=== PATIENT | female | born 1950 | race Caucasian/White ===

== ENCOUNTER → 2019-04-06 | Outpatient (CLI) | payer MEDICARE ==
--- NOTE | 2019-04-06 14:40 | US ---
EXAMINATION TYPE: US pelvic complete DATE OF EXAM: 04/06/2019 COMPARISON: NONE CLINICAL HISTORY: R10.2 Pelvic Pain. general pelvic pain, not consistent, h/o mild prolapse, TECHNIQUE: TA. Transabdominal sonographic images only, patient would be unable to do TV due to habi tus and she cannot bend her knee, pending total knee replacement Date of LMP: 12yrs EXAM MEASUREMENTS: Uterus: 7.7 x 4.9 x 3.6 cm Endometrial Stripe: Not discernable Right Ovary: not seen Left Ovary: 1.5 x 1.4 x 1.3 cm bladder was not fully distended, patient did prep and felt full 1. Uterus: Anteverted, difficult to penetrate, images at end of study shows peripheral calcification s 2. Endometrium: not discernable 3. Right Ovary: not seen likely due to atrophy and bowel gas 4. Left Ovary: atrophic, appears wnl 5. Bilateral Adnexa: wnl 6. Posterior cul-de-sac: wnl IMPRESSION: Suboptimal exam as transvaginal exam could not be performed as discussed above. 1. Nonvisualization of the right ovary and atrophic left ovary. Uterus appears heterogenous however s uboptimally viewed and endometrium cannot be delineated.
== END | disposition home or self-care (01) ==
LOC: RADUSWWP 13:28
PROVIDERS: ATTEND Internal Medicine
DX: N83.312 Acquired atrophy of left ovary (principal)
CPT/HCPCS: 76856

== ENCOUNTER 2023-11-25 07:22 | Emergency (ER) | payer MEDICARE ==
--- NOTE | 2023-11-25 07:42 | ED ---
General Adult HPI - General Chief complaint: Extremity Injury, Lower Stated complaint: Fall, L Ankle Pain Time Seen by Provider: 11/25/23 07:27 Source: patient, RN notes reviewed, old records reviewed Mode of arrival: EMS Limitations: no limitations - History of Present Illness Initial comments: 73-year-old female presenting for evaluation of left ankle pain status post fall. Patient states she tripped falling in her bedroom. She did not have head or neck trauma. She was transported by paramedics due to the inability to bear weight on her left leg. - Related Data Home Medications Medication Instructions Recorded Confirmed Aspirin 162 mg PO DAILY 09/05/14 09/05/14 Calcium Carbonate/Vitamin D3 1 each PO BID 09/05/14 09/05/14 [Calcium 600-Vit D3 400 Tablet] Escitalopram [Lexapro] 20 mg PO DAILY 09/05/14 09/05/14 Levothyroxine Sodium [Synthroid] 137 mcg PO DAILY 09/05/14 09/05/14 Mirtazapine [Remeron] 15 mg PO HS 09/05/14 09/05/14 Multivitamin [Men's Multi-Vitamin] 1 each PO DAILY 09/05/14 09/05/14 Naproxen Sodium [Naprelan] 375 mg PO DAILY 09/05/14 09/05/14 Omeprazole [PriLOSEC] 20 mg PO AC-BRKFST 09/05/14 09/05/14 Simvastatin [Zocor] 20 mg PO HS 09/05/14 09/05/14 glyBURIDE [Diabeta] 5 mg PO AC-BID 09/05/14 09/05/14 metFORMIN HCL [Glucophage] 1,000 mg PO BID 09/05/14 09/05/14 sitaGLIPtin PHOSPHATE [Januvia] 100 mg PO DAILY 09/05/14 09/05/14 Allergies Allergy/AdvReac Type Severity Reaction Status Date / Time No Known Allergies Allergy Verified 11/25/23 07:37 Review of Systems ROS Statement: Those systems with pertinent positive or pertinent negative responses have been documented in the HPI. ROS Other: All systems not noted in ROS Statement are negative. Past Medical History Past Medical History: Diabetes Mellitus Additional Past Medical History / Comment(s): ARTHRITIS History of Any Multi-Drug Resistant Organisms: None Reported Additional Past Surgical History / Comment(s): CATARACT Past Anesthesia/Blood Transfusion Reactions: No Reported Reaction Past Psychological History: Depression Smoking Status: Never smoker Past Alcohol Use History: None Reported Past Drug Use History: None Reported - Past Family History Father Family Medical History: Diabetes Mellitus, Hyperlipidemia, Hypertension, Myocardial Infarction ([place]) Additional Family Medical History / Comment(s): AT AGE 83- Mother Family Medical History: Diabetes Mellitus Additional Family Medical History / Comment(s): AT AGE 81 FROM COMPLICATIONS FROM P[place]S Brother(s) Family Medical History: Diabetes Mellitus Sister(s) Family Medical History: Diabetes Mellitus General Exam Limitations: no limitations General appearance: alert, in no apparent distress Head exam: Present: atraumatic, normocephalic Eye exam: Present: normal appearance, PERRL ENT exam: Present: normal exam Neck exam: Present: normal inspection. Absent: tenderness, meningismus Respiratory exam: Present: normal lung sounds bilaterally. Absent: respiratory distress, wheezes Cardiovascular Exam: Present: regular rate, normal rhythm GI/Abdominal exam: Present: soft. Absent: distended, tenderness, guarding Extremities exam: Present: tenderness, joint swelling, other (2+ DP pulse, swelling over the lateral malleolus with ecchymosis). Absent: full ROM Neurological exam: Present: alert, oriented X3 Psychiatric exam: Present: normal affect, normal mood Skin exam: Present: warm Course Vital Signs 11/25/23 11/25/23 07:32 09:35 Temperature 97.3 F L 98.1 F Pulse Rate 68 79 Respiratory 18 18 Rate Blood Pressure 155/80 145/89 O2 Sat by Pulse 99 98 Oximetry - Reevaluation(s) Reevaluation #1: 11/25/23 10:40 The patient will need a wheelchair to perform her ADLs. She is unable to ambulate with a walker. The patient has a caregiver at home and can propel herself. Procedures - Orthopedic Splinting/Casting Injury #1 Side: left Lower Extremity Injury Location: ankle Lower Extremity Immobilizer: stirrup splint Other Orthopedic Equipment: other (Wheelchair) Medical Decision Making - Medical Decision Making Was pt. sent in by a medical professional or institution (, PA, GENERAL II FARMWORKER, urgent care, hospital, or assisted...) When possible be specific @ -No Did you speak to anyone other than the patient for history (EMS, parent, family, police, friend...)? What history was obtained from this source @ -No Did you review nursing and triage notes (agree or disagree)? Why? @ -I reviewed and agree with nursing and triage notes Were old charts reviewed (outside hosp., previous admission, EMS record, old EKG, old radiological studies, urgent care reports/EKG's, assisted records)? Report findings @ -No old charts were reviewed Differential Diagnosis (chest pain, altered mental status, abdominal pain women, abdominal pain men, vaginal bleeding, weakness, fever, dyspnea, syncope, headache, dizziness, GI bleed, back pain, seizure, CVA, palpatations, mental health, musculoskeletal)? @Differential Musculoskeletal Muscular strain, contusion, ligament sprain, fracture, arthritis, septic arthritis, bursitis, cellulitis, muscle spasm, nerve compression, DVT, arterial occlusion, herpes zoster, electrolyte abnormality, tumor.... This is not meant to be in all inclusive list EKG interpreted by me (3pts min.). @ -As above X-rays interpreted by me (1pt min.). @X-ray of the left ankle showing a distal lateral malleolus avulsion fracture without disruption of the ankle mortis lumbar spine x-ray is negative for fracture. Showing chronic changes. CT interpreted by me (1pt min.). @ -[CT brain negative for intracranial hemorrhage or mass effect, CT cervical spine negative for fracture or subluxation U/S interpreted by me (1pt. min.). @ -None done What testing was considered but not performed or refused? (CT, X-rays, U/S, labs)? Why? @ -None What meds were considered but not given or refused? Why? @ -None Did you discuss the management of the patient with other professionals (braydne johnson i.e. , PA, GENERAL II FARMWORKER, lab, RT, psych nurse, social worker assistant, ferris wheel attendant, teacher, front desk officer, director of casework services)? Give summary @ -No Was smoking cessation discussed for >3mins.? @ -No Was critical care preformed (if so, how long)? @ -No Were there social determinants of health that impacted care today? How? (Homelessness, low income, unemployed, alcoholism, drug addiction, transportation, low edu. Level, literacy, decrease access to med. care, fci, rehab)? @ -No Was there de-escalation of care discussed even if they declined (Discuss DNR or withdrawal of care, Hospice)? DNR status @ -No What co-morbidities impacted this encounter? (DM, HTN, Smoking, COPD, CAD, Cancer, CVA, ARF, Chemo, Hep., AIDS, mental health diagnosis, sleep apnea, morbid obesity)? @ -None Was patient admitted / discharged? Hospital course, mention meds given and route, prescriptions, significant lab abnormalities, going to OR and other pertinent info. @ -[73-year-old female with fall at home, left ankle injury. She had some chronic low back pain, chronic neck pain. Workup does reveal a avulsion fracture of the lateral malleolus. Patient is placed in a stirrup splint. She is offered observation and possible rehabilitation. The patient declines and prefers to go home. She is provided with a prescription for wheelchair. Undiagnosed new problem with uncertain prognosis? @ -No Drug Therapy requiring intensive monitoring for toxicity (Heparin, Nitro, Insulin, Cardizem)? @ -No Were any procedures done? @Yes, splint placement Diagnosis/symptom? @ -Ankle fracture Acute, or Chronic, or Acute on Chronic? @Acute Uncomplicated (without systemic symptoms) or Complicated (systemic symptoms)? @ -Default Side effects of treatment? @ -No Exacerbation, Progression, or Severe Exacerbation? @ -No Poses a threat to life or bodily function? How? (Chest pain, [place], [place], pneumonia, PE, COPD, DKA, ARF, appy, cholecystitis, CVA, Diverticulitis, Homicidal, Suicidal, threat to staff... and all critical care pts) @ -No Disposition Clinical Impression: Fracture of malleolus, left ankle, closed, Ankle fracture Disposition: HOME SELF-CARE Instructions (If sedation given, give patient instructions): Ankle Fracture (ED) Is patient prescribed a controlled substance at d/c from ED?: No Referrals: [facility] [NON-STAFF] - (Supplier of wheelchair) None,Stated [REFERRING] - 1-2 days Jaime Velazquez DO [Doctor of Osteopathic Medicine] - 1-2 days Forms: Area PCPs
[2023-11-25 07:49] VITALS: RESP 18
--- NOTE | 2023-11-25 08:37 | XR ---
EXAMINATION TYPE: XR lumbar spine 2 or 3V DATE OF EXAM: 11/25/2023 CLINICAL HISTORY: pain TECHNIQUE: Two views of the lumbar spine are submitted. COMPARISON: None. FINDINGS: There are 5 lumbar type vertebral bodies identified. The lumbar spine shows satisfactory alignment w ithout evidence of acute fracture or dislocation. Vertebral body heights are within normal limits. Severe degenerative disc space narrowing L3-4 through L5-S1. Grade 2 anterolisthesis L4 on L5 measuri ng 1.2 cm Severe facet joint arthropathy. Curvature convex to the right. The overlying soft tissue appears unr emarkable. IMPRESSION: No acute fracture is seen in the lumbar spine. ICD 10 NO FRACTURE, INITIAL EVALUATION
--- NOTE | 2023-11-25 08:41 | XR ---
EXAMINATION TYPE: XR ankle complete LT DATE OF EXAM: 11/25/2023 COMPARISON: NONE HISTORY: Pain TECHNIQUE: 3 views of the left ankle are submitted for evaluation. FINDINGS: Small avulsion fracture at the tip of the lateral malleolus with associated soft tissue swe lling. Well-corticated ossific density adjacent to the medial malleolar tip is likely chronic in natu re. Ankle mortise is intact. IMPRESSION: 1. As above
--- NOTE | 2023-11-25 09:50 | CT ---
EXAMINATION TYPE: CT brain cspine wo con CT DLP: 1554.6 mGycm, Automated exposure control for dose reduction was used. DATE OF EXAM: 11/25/2023 9:30 AM COMPARISON: None. CLINICAL INDICATION:Female, 73 years old with history of fall; fall TECHNIQUE: Brain: Multiple axial CT images of the brain were obtained without IV contrast. Cspine: Axial CT images from the skull base to the inferior aspect of T2 we obtained without intraven ous contrast. Coronal and sagittal reformatted images were also reviewed. FINDINGS: Brain: Extra-axial spaces: No abnormal extra-axial fluid collections. Ventricular system: Dilatation in proportion to cerebral atrophy. Cerebral parenchyma: Cerebral atrophy. No acute intraparenchymal hemorrhage or mass effect. The delgado -white junction is well differentiated. Scattered hypoattenuating areas are seen within the white mat ter. Cerebellum: Unremarkable. Mass effect: No evidence of midline shift. Intracranial vasculature: Atherosclerotic calcifications of the intracranial vessels. Soft tissues: Normal. Calvarium/osseous structures: No depressed skull fracture. Paranasal sinuses and mastoid air cells: Clear. Visualized orbits: Orbital contents are intact. Cervical spine: Fracture: None. Osseous structures: Multilevel degenerative disc disease changes with endplate spurring and disc oste ophyte complex's. Vertebral alignment: Within normal limits. Spinal canal/Neural Foramina: No evidence of significant spinal canal narrowing. No evidence for sign ificant neural foraminal stenosis. Neck soft tissues: Prevertebral soft tissues are within normal limits. Other: The airway is patent. The lung apices are clear. IMPRESSION: 1. No acute intracranial process. 2. Nonspecific white matter changes, likely secondary to chronic small vessel ischemic disease. 3. No evidence of cervical spine fracture. 4. Mild multilevel degenerative disc disease.
[2023-11-25] MEDS ORDERED: KETOROLAC 15 MG/ML 1 ML VIAL IM STA (09:51)
[2023-11-25 11:13] VITALS: TEMP 98
[2023-11-25 14:05] VITALS: BP 171/83; PULSE 95
== END 2023-11-25 13:43 | disposition home or self-care (01) ==
LOC: EC 07:22
DX: S82.62XA Displaced fracture of lateral malleolus of left fibula, initial encounter for closed fracture (principal); E11.9 Type 2 diabetes mellitus without complications; F32.A Depression, unspecified; Z79.84 Long term (current) use of oral hypoglycemic drugs; Z79.899 Other long term (current) drug therapy; W01.0XXA Fall on same level from slipping, tripping and stumbling without subsequent striking against object, initial encounter; Y92.003 Bedroom of unspecified non-institutional (private) residence as the place of occurrence of the external cause
CPT/HCPCS: 72100; 73610; 72125; 70450; 99284; 29515; 96372; J1885

== ENCOUNTER → 2024-02-11 | Outpatient (CLI) | payer MEDICARE ==
[2024-02-11 13:25] VITALS: BP 132/72; PULSE 72; RESP 15; TEMP 97.2
--- NOTE | 2024-02-11 14:59 | P.PAINPG ---
PQRS Measure Charge Sheet Comment: HISTORY OF PRESENT ILLNESS: A 73 yr old female w daughter at side as a referral from Dr Hui presents today w severe and chronic LBP > 1 yr secondary to DDD, spondylosis and facet arthropathy without myelopathy for evaluation. Pt states pain level is provoked at 9 /10 in intensity, constant, localized in the lower lumbar spine, predominantly axial, achy in character w occasional shooting pain towards the BL hips L> R. Pain is provoked by walking/ standing for periods > 10 min. Pain is alleviated by PT in 2017, heat, medications (Naproxen), manual massage, repositioning and rest. Oswestry axial pain score at 33. PMH: OA, HTN, Hyperlipidemia, NIDDM II, GERD, Vitamin D Deficiency, MDD PSH: Cataracts SH: Negative x3 FH: Fa- DM, CAD, maylin ge 85. Mo- DM, Parkinsons, at age 83. Bro- DM. Sis- DM. All: See list Meds: See list REVIEW OF ORGAN SYSTEMS: CONSTITUTIONAL: No fevers or chills. No recent weight loss. NEUROLOGICAL: + numbness and tingling along the distal extremities. No seizure disorders or headaches. MUSCULOSKELETAL: + pain PSYCHIATRIC: Denies current depression or suicidal thoughts. Physical Examinations : Constitutional : Cooperative , not in acute distress . Neurologic : Cranial nerve II to XII intact. No focal neurological deficits. Psychiatric : alert & oriented x 3. Matching mood & appropriate affect. Judgment & insight intact. Musculoskeletal : Cervical Spine Motor strength in the deltoid and biceps: Normal right side. Normal Left side Motor strength biceps and the wrist extensors: Normal right side . Normal left side Motor strength in the triceps muscle: Normal right side. Normal left side Deep tendon reflexes: Normal at the biceps. Normal at Brachioradialis. Normal at triceps Vertebral body tenderness to deep palpation over Cervical facet loading test: positive bilaterally Spurling test: positive bilaterally Neck distraction test: positive bilaterally Nabil sign: positive bilaterally Lumbar spine Motor strength lower extremities ,thigh and legs 5/5 Right side , 5/5 Left side Deep tendon reflexes : Normal Knee Jerk. Normal Ankle Jerk Vertebral body tenderness over Gee Test positive Lumbar facet Loading Test: positive Right / positive Left Range of motion of the lumbar spine Flexion 30 degrees, extension 10 degrees Straight Leg Raise test: Left/ Right positive at degree Toya test: positive right / positive left. Severe tenderness over the Sacroiliac joint on the Right / Left sides Gaenslen test: positive bilaterally Seated flexion test: positive bilaterally. Sacral spine : Severe tenderness over the Sacroiliac joint: right side / left side Range of motion: Flexion of the lumbar spine <60 degrees Range of motion: Extension of the lumbar spine <20 degrees Gaenslen's Test positive Toya test: positive right side / l eft side Thigh Thrust Test Sacral Thrust Test Imaging: X ray of the lumbar spine from 11/25/2023 reviewed Assessment/ Plan : Lumbar DDD Recommendation of MRI non contrast lumbar spine M51.36. All questions answered. I have spent greater than 30 minutes on patient care today. Dr Partida was available by phone for the evaluation of this patient. The time was used to review the medical records including relevant urine studies and Prescription history (MAPs), review of the available imaging, evaluation and examination of the patient, coordination of care with the medical staff and if applicable referring physicians, as well as creation of the medical record PQRS Narrative: Smoking Status Never smoker Home Medications: Ambulatory Orders Aspirin 162 mg PO DAILY 09/05/14 Calcium Carbonate/Vitamin D3 [Calcium 600-Vit D3 400 Tablet] 1 each PO BID 09/05/14 Escitalopram [Lexapro] 20 mg PO DAILY 09/05/14 Levothyroxine Sodium [Synthroid] 137 mcg PO DAILY 09/05/14 Mirtazapine [Remeron] 15 mg PO HS 09/05/14 Multivitamin [Men's Multi-Vitamin] 1 each PO DAILY 09/05/14 Naproxen Sodium [Naprelan] 375 mg PO DAILY 09/05/14 Omeprazole [PriLOSEC] 20 mg PO AC-BRKFST 09/05/14 Simvastatin [Zocor] 20 mg PO HS 09/05/14 glyBURIDE [Diabeta] 5 mg PO AC-BID 09/05/14 metFORMIN HCL [Glucophage] 1,000 mg PO BID 09/05/14 sitaGLIPtin PHOSPHATE [Januvia] 100 mg PO DAILY 09/05/14 Controlled Substance Measures - Controlled Substance Measures Is patient prescribed a controlled substance at discharge?: No
== END | disposition home or self-care (01) ==
LOC: PNWHC3 12:25
PROVIDERS: ATTEND Specialist
DX: M50.10 Cervical disc disorder with radiculopathy, unspecified cervical region (principal); M51.36 Other intervertebral disc degeneration, lumbar region
CPT/HCPCS: 99211

== ENCOUNTER 2024-04-08 13:14 | Day surgery (SDC) | payer MEDICARE ==
[~2024-04-08 13:14] MED LIST: LACTATED RINGERS 1,000 ML IV SCH
[2024-04-08 13:51] VITALS: TEMP 98.2
[2024-04-08 13:52] LABS: Glucose,Whole Blood 157 mg/dL (70-110)
[2024-04-08] MEDS ORDERED: ROPIVACAINE 5MG/ML 20ML VIAL ONE (14:49)
[2024-04-08] MEDS ORDERED: methylPREDNISolone ACETATE 40 MG/ML 1 ML VIAL ONE (14:49)
--- NOTE | 2024-04-08 15:00 | P.PCN ---
Date of Procedure: 04/08/24 Procedure(s) Performed: Procedure= trigger point injections cervical paraspinal muscles bilaterally , 4 on the right side from C2 to T2, and 5 on the left side from C2 to T2 Preoperative diagnosis= 1-myofascial pain syndrome Cervical paraspinal muscles 2-cervical degenerative disc disease Postoperative diagnosis=Same as preop Diagnosis . Complication = none Condition= stable Anesthesia= none Indication for the procedure= patient complaining of severe neck pain and headache , and low back pain , examination was positive for multiple trigger point in the cervical paraspinal muscles bilaterally and patient diagnosed with myofascial pain syndrome and is here to have trigger point injections Description of the procedure= procedure risk and benefits discussed with the patient, including but not limited, risk of infection and bleeding, and ALLERGIC reaction to the medication and not complete pain relief and patient agreed with the preceding patient taken to the operating room, placed in sitting position or standard monitors applied to the patient then cervical area prepped with chlorhexidine 3 times , then under sterile technique each of the trigger point that was marked in the preop holding area 4 on the right side Cervical paraspinal muscles, and 5 on the left side cervical paraspinal muscles each one of them injected with the 2 mL of the mixture of ropivacaine 0.5% 18 ML mixed with 40 mg of Depo-Medrol and 2 mL of the mixture injected at each trigger point after negative aspiration, using 25-gauge needle, injection done after negative aspiration under was no paresthesia during the injection patient tolerated the procedure well without any complications and he will follow up in the pain clinic in a few weeks. She was complaining of severe low back pain previously we ordered MRI of the lumbar spine but because patient cannot stay still for long time to do MRI of the lumbar spine, we will order CT scan of the lumbar spine without contrast to evaluate her lumbar spine , prescription for CT scan of the lumbar spine was given
[2024-04-08 15:26] VITALS: BP 115/74; PULSE 72; RESP 14
== END 2024-04-08 15:33 | disposition home or self-care (01) ==
LOC: ORPAIN 13:14
PROVIDERS: ATTEND Specialist
DX: M79.18 Myalgia, other site (principal); M50.31 Other cervical disc degeneration, high cervical region; Z79.82 Long term (current) use of aspirin
CPT/HCPCS: 20553; J2795; J1010

== ENCOUNTER 2024-04-15 22:24 | Inpatient (IN) | payer MEDICARE ==
[2024-04-15 22:57] LABS: Glucose,Whole Blood 208 mg/dL (70-110)
[2024-04-15 23:02] LABS: Basophils # (A) 0.1 k/uL (0-0.2); Basophils % (A) 1 %; Eosinophils # (A) 0.4 k/uL (0-0.7); Eosinophils % (A) 4 %; HCT 40.7 % (34.0-46.0); HGB 13.2 gm/dL (11.4-16.0); Lymphocytes # (A) 3.9 k/uL (1.0-4.8); Lymphocytes % (A) 34 %; MCH 28.5 pg (25.0-35.0); MCHC 32.5 g/dL (31.0-37.0); MCV 87.6 fL (80.0-100.0); Mean Platelet Volume 6.8; Monocytes # (A) 0.7 k/uL (0-1.0); Monocytes % (A) 6 %; Neutrophils # (A) 6.3 k/uL (1.3-7.7); Neutrophils % (A) 55 %; Platelet Count 514 k/uL (150-450); RBC 4.64 m/uL (3.80-5.40); RDW 12.4 % (11.5-15.5); WBC 11.5 k/uL (3.8-10.6)
--- NOTE | 2024-04-15 23:10 | ED ---
General Adult HPI - General Chief complaint: Altered Mental Status Stated complaint: poor memory, shaking, low sodium Time Seen by Provider: 04/15/24 22:48 Source: family Mode of arrival: wheelchair Limitations: no limitations - History of Present Illness Initial comments: Dictation was produced using [employer] dictation software. please excuse any grammatical, word or spelling errors. Chief Complaint: 73-year-old female presents to the emergency department with low sodium, weakness and altered mental status History of Present Illness: Patient 73-year-old female she has past medical history of diabetes, chronic back pain. She had routine blood work performed by her primary care doctor on Friday. States that she reviewed her results and daughter noticed that her sodium level was pretty low at 123. She has had sodium as low as 120 in the past. Patient also over the last 2 to 3 days has been having what daughter describes as some lapses in mentation that she describes as confusion about where she is. Patient states she is has acute on chronic back pain. She does follow-up with pain specialist and is scheduled to have a CT of her back soon. Any fever. No numbness tingling paresthesias to the arms or legs. Denies headache The ROS documented in this emergency department record has been reviewed and confirmed by me. Those systems with pertinent positive or negative responses have been documented in the HPI. All other systems are other negative and/or noncontributory. - Related Data Home Medications Medication Instructions Recorded Confirmed Aspirin 243 mg PO DAILY 09/05/14 04/08/24 Calcium Carbonate/Vitamin D3 1 each PO DAILY 09/05/14 04/08/24 [Calcium 600-Vit D3 400 Tablet] Escitalopram [Lexapro] 20 mg PO DAILY 09/05/14 04/08/24 Mirtazapine [Remeron] 15 mg PO HS 09/05/14 04/08/24 Multivitamin [Men's Multi-Vitamin] 1 each PO DAILY 09/05/14 04/08/24 Naproxen Sodium [Naprelan] 375 mg PO BID 09/05/14 04/08/24 Omeprazole [PriLOSEC] 20 mg PO AC-BRKFST 09/05/14 04/08/24 Simvastatin [Zocor] 20 mg PO HS 09/05/14 04/08/24 metFORMIN HCL [Glucophage] 1,000 mg PO BID 09/05/14 04/08/24 Unk Loperamide 1 tab PO DIRECTED PRN 04/07/24 04/08/24 Fluconazole 200 mg PO DIRECTED PRN 04/07/24 04/08/24 Insulin Glargine/Lixisenatide 20 units SQ DAILY 04/07/24 04/08/24 [Soliqua 100 Unit-33 Mcg/ml Pen] Levothyroxine Sodium [Synthroid] 137 mcg PO DAILY 04/07/24 04/08/24 Unk Azo Cranberry 1 tab PO DAILY 04/07/24 04/08/24 Unk Azo Probiotic 1 tab PO DAILY 04/07/24 04/08/24 Unk Nyamyc Powder 1 applic TOPICAL DIRECTED PRN 04/07/24 04/08/24 Unk Nystatin Cream 1 applic TOPICAL DIRECTED PRN 04/07/24 04/08/24 lisinopriL [Zestril] 10 mg PO DAILY 04/07/24 04/08/24 ondansetron HCL [Ondansetron HCl] 8 mg PO DIRECTED PRN 04/07/24 04/08/24 Allergies Allergy/AdvReac Type Severity Reaction Status Date / Time No Known Allergies Allergy Verified 04/15/24 22:36 Review of Systems ROS Statement: Those systems with pertinent positive or pertinent negative responses have been documented in the HPI. ROS Other: All systems not noted in ROS Statement are negative. Past Medical History Past Medical History: Diabetes Mellitus, GERD/Reflux, Hyperlipidemia, Hypertension, Osteoarthritis (OA), Thyroid Disorder Additional Past Medical History / Comment(s): ARTHRITIS, hx UTI History of Any Multi-Drug Resistant Organisms: None Reported Additional Past Surgical History / Comment(s): CATARACT, toe surgery for neuroma , D&C Past Anesthesia/Blood Transfusion Reactions: No Reported Reaction Past Psychological History: Depression Smoking Status: Never smoker Past Alcohol Use History: None Reported Past Drug Use History: None Reported - Past Family History Father Family Medical History: Diabetes Mellitus, Hyperlipidemia, Hypertension, Myocardial Infarction ([place]) Additional Family Medical History / Comment(s): AT AGE 83- Mother Family Medical History: Diabetes Mellitus Additional Family Medical History / Comment(s): AT AGE 81 FROM COMPLICATIO NS FROM [place] Brother(s) Family Medical History: Diabetes Mellitus Sister(s) Family Medical History: Diabetes Mellitus General Exam - General Exam Comments Initial Comments: PHYSICAL EXAM: General Impression: Alert and oriented x3, not in acute distress HEENT: Normocephalic atraumatic, extra-ocular movements intact, pupils equal and reactive to light bilaterally, mucous membranes moist. Cardiovascular: Heart regular rate and rhythm Chest: Able to complete full sentences, no retractions, no tachypnea Abdomen: abdomen soft, non-tender, non-distended, no organomegaly Musculoskeletal: Pulses present and equal in all extremities, no peripheral edema Motor: no focal deficits noted Neurological: CN II-XII grossly intact, no focal motor or sensory deficits noted Skin: Intact with no visualized rashes Psych: Normal affect and mood Limitations: no limitations Course Vital Signs 04/15/24 22:33 Temperature 97.8 F Pulse Rate 92 Respiratory 18 Rate Blood Pressure 122/75 O2 Sat by Pulse 97 Oximetry EKG Findings - EKG Comments: EKG Findings:: My EKG interpretation: Ventricular rate 107, QRS 93, QTc 394. Interpretation limited due to artifact.. No OR prolongation, no QTC prolongation, no ST or T-wave changes noted. EKG compared to prior 08/15/2014 showing no changes. Overall, this EKG is unremarkable Medical Decision Making - Medical Decision Making Was pt. sent in by a medical professional or institution ([facility], PONY WORKER, urgent care, hospital, or senior living...) When possible be specific @ -No Did you speak to anyone other than the patient for history (EMS, parent, family, police, friend...)? What history was obtained from this source @ -History obtained from daughter as described above Did you review nursing and triage notes (agree or disagree)? Why? @ -I reviewed and agree with nursing and triage notes Were old charts reviewed (outside hosp., previous admission, EMS record, old EKG, old radiological studies, urgent care reports/EKG's, senior living records)? Report findings @ -No old charts were reviewed Differential Diagnosis (chest pain, altered mental status, abdominal pain women, abdominal pain men, vaginal bleeding, musculoskeletal, weakness, fever, dyspnea, syncope, headache, dizziness, GI bleed, back pain, seizure, CVA, palpatations, mental health)? @ -Differential Weakness: Hypoglycemia, shock, sepsis, hyponatremia, anemia, infection, SD, ETOH, adverse medicine reaction, overdose, stroke, this is not meant to be an all-inclusive list. EKG interpreted by me (3pts min.). @ -See above X-rays interpreted by me (1pt min.). @ -None done CT interpreted by me (1pt min.). @ -Scan of the brain is unremarkable. U/S interpreted by me (1pt. min.). @ -None done What testing was considered but not performed or refused? (CT, X-rays, U/S, labs)? Why? @ -None What meds were considered but not given or refused? Why? @ -None Did you discuss the management of the patient with other professionals (professionals i.e. , PA, PONY WORKER, lab, RT, psych nurse, public health social worker, automotive accessory installer, teacher, audit officer, showcase maker)? Give summary @ -Case discussed with Dr. Hui for admission Was smoking cessation discussed for >3mins.? @ -No Was critical care preformed (if so, how long)? @ -No Were there social determinants of health that impacted care today? How? (Homelessness, low income, unemployed, alcoholism, drug addiction, transportation, low edu. Level, literacy, decrease access to med. care, nursing home, rehab)? @ -No Was there de-escalation of care discussed even if they declined (Discuss DNR or withdrawal of care, Hospice)? DNR status @ -No What co-morbidities impacted this encounter? (DM, HTN, Smoking, COPD, CAD, Cancer, CVA, ARF, Chemo, Hep., AIDS, mental health diagnosis, sleep apnea, morbid obesity)? @ -None Was patient admitted / discharged? Hospital course, mention meds given and route, prescriptions, significant lab abnormalities, going to OR and other pertinent info. @ -73-year-old female presents to the ER for weakness. Vital signs upon arrival are within acceptable limits. Patient has complaints of generalized weakness and nonfocal altered mental status described as confusion. Labs are obtained. Sodium is 122. Rest of labs within acceptable limits. Patient will be admitted. Patient treated with IV fluids. Undiagnosed new problem with uncertain prognosis? @ -No Drug Therapy requiring intensive monitoring for toxicity (Heparin, Nitro, Insulin, Cardizem)? @ -No Were any procedures done? @ -No Diagnosis/symptom? Acute, or Chronic, or Acute on Chronic? Uncomplicated (wi thout systemic symptoms) or Complicated (systemic symptoms)? @ -Hyponatremia Side effects of treatment? @ -No Exacerbation, Progression, or Severe Exacerbation? @ -No Poses a threat to life or bodily function? How? (Chest pain, USA, SD, pneumonia, PE, COPD, DKA, ARF, appy, cholecystitis, CVA, Diverticulitis, Homicidal, Suicidal, threat to staff... and all critical care pts) @ -yes - Lab Data Result diagrams: 04/15/24 22:55 04/15/24 22:55 Lab Results 04/15/24 04/15/24 04/15/24 Range/Units 22:55 22:55 22:56 WBC 11.5 H (3.8-10.6) k/uL RBC 4.64 (3.80-5.40) m/uL Hgb 13.2 (11.4-16.0) gm/dL Hct 40.7 (34.0-46.0) % MCV 87.6 (80.0-100.0) fL MCH 28.5 (25.0-35.0) pg MCHC 32.5 (31.0-37.0) g/dL RDW 12.4 (11.5-15.5) % Plt Count 514 H (150-450) k/uL MPV 6.8 Neutrophils % 55 % Lymphocytes % 34 % Monocytes % 6 % Eosinophils % 4 % Basophils % 1 % Neutrophils # 6.3 (1.3-7.7) k/uL Lymphocytes # 3.9 (1.0-4.8) k/uL Monocytes # 0.7 (0-1.0) k/uL Eosinophils # 0.4 (0-0.7) k/uL Basophils # 0.1 (0-0.2) k/uL Sodium 122 L (137-145) mmol/L Potassium 4.9 (3.5-5.1) mmol/L Chloride 92 L (98-107) mmol/L Carbon Dioxide 19 L (22-30) mmol/L Anion Gap 11 mmol/L BUN 21 H (7-17) mg/dL Creatinine 0.68 (0.52-1.04) mg/dL Est GFR (CKD-EPI)AfAm >90 (>60 ml/min/1.73 sqM) Est GFR (CKD-EPI)NonAf 88 (>60 ml/min/1.73 sqM) Glucose 208 H (74-99) mg/dL POC Glucose (mg/dL) 208 H (70-110) mg/dL POC Glu Shake Out Worker ID Wayne Obrien Calcium 9.3 (8.4-10.2) mg/dL Magnesium 1.5 L (1.6-2.3) mg/dL Total Bilirubin 0.5 (0.2-1.3) mg/dL AST 24 (14-36) U/L ALT 18 (4-34) U/L Alkaline Phosphatase 66 (38-126) U/L Total Protein 6.8 (6.3-8.2) g/dL Albumin 4.4 (3.5-5.0) g/dL Disposition Clinical Impression: Hyponatremia Disposition: ADMITTED IP TO THIS HOSP Condition: Fair Referrals: Rico Hui MD [Primary Care Provider] - 1-2 days Decision Time: 00:38
[2024-04-15 23:22] LABS: ALT 18 U/L (4-34); AST 24 U/L (14-36); African American GFR (CKD) >90 (>60 ml/min/1.73 sqM); Albumin 4.4 g/dL (3.5-5.0); Alkaline Phosphatase 66 U/L (38-126); Anion Gap 11 mmol/L; Blood Urea Nitrogen 21 mg/dL (7-17); Calcium 9.3 mg/dL (8.4-10.2); Carbon Dioxide 19 mmol/L (22-30); Chloride 92 mmol/L (98-107); Glucose 208 mg/dL (74-99); Magnesium 1.5 mg/dL (1.6-2.3); Non-African American GFR(CKD) 88 (>60 ml/min/1.73 sqM); Potassium 4.9 mmol/L (3.5-5.1); Sodium 122 mmol/L (137-145); Total Bilirubin 0.5 mg/dL (0.2-1.3); Total Protein 6.8 g/dL (6.3-8.2)
[2024-04-15] MEDS: SODIUM CHLORIDE 0.9% 1,000 ML IV STA ×2 (23:54)
--- NOTE | 2024-04-16 | CT ---
EXAM: CT Head Without Intravenous Contrast CLINICAL HISTORY: ITS.REASON CT Reason: ams, back pain TECHNIQUE: Axial computed tomography images of the head/brain without intravenous contrast. CTDI is 49.1 mGy and DLP is 1154.4 mGy-cm. This CT exam was performed using one or more of the following dose reduction techniques: automated exposure control, adjustment of the mA and/or kV according to patient size, and/or use of iterative reconstruction technique. COMPARISON: No relevant prior studies available. FINDINGS: No acute intracranial hemorrhage. No midline shift or mass effect. The territorial delgado-white matter differentiation is maintained throughout. Age-related cerebral volume loss. Periventricular and subcortical white matter hypoattenuation, consistent with chronic microangiopathy. The visualized orbits appear grossly unremarkable. The calvarium is intact. The visualized paranasal sinuses and mastoid air cells are grossly clear. IMPRESSION: No acute intracranial hemorrhage, midline shift, or mass effect.
[2024-04-16] MEDS ORDERED: NALOXONE 0.4 MG/ML 1 ML VIAL IV PRN (01:14)
--- NOTE | 2024-04-16 01:19 | CT ---
EXAM: CT Thoracic Spine Without Intravenous Contrast CLINICAL HISTORY: ITS.REASON CT Reason: ams, back pain TECHNIQUE: Axial computed tomography images of the thoracic spine without intravenous contrast. CTDI is 40.3 mGy and DLP is 2253.4 mGy-cm. This CT exam was performed using one or more of the following dose reduction techniques: automated exposure control, adjustment of the mA and/or kV according to patient size, and/or use of iterative reconstruction technique. COMPARISON: No relevant prior studies available. FINDINGS: The vertebral body heights are maintained. The thoracic kyphosis is preserved. There is no spondylolisthesis. The posterior elements are maintained, without evidence of acute fracture. The pedicles are intact. Multilevel thoracic spondylosis and degenerative disc disease. IMPRESSION: No acute fracture or subluxation of the thoracic spine. EXAM: CT Lumbar Spine Without Intravenous Contrast CLINICAL HISTORY: ITS.REASON CT Reason: ams, back pain TECHNIQUE: Axial computed tomography images of the lumbar spine without intravenous contrast. This CT exam was performed using one or more of the following dose reduction techniques: automated exposure control, adjustment of the mA and/or kV according to patient size, and/or use of iterative reconstruction technique. COMPARISON: No relevant prior studies available. FINDINGS: The vertebral body heights are maintained. The lumbar lordosis is preserved. Grade 1 anterolisthesis of L4 on L5. The posterior elements are maintained, without evidence of acute fracture. The pedicles are intact. Multilevel lumbar spondylosis and degenerative disc disease. IMPRESSION: No lumbar spine fracture. Grade 1 anterolisthesis of L4 on L5.
[2024-04-16] MEDS: SODIUM CHLORIDE 0.9% 1,000 ML IV SCH ×2 (01:55→20:32)
[2024-04-16] MEDS ORDERED: ONDANSETRON 4 MG TAB PO PRN (09:41)
[2024-04-16] MEDS ORDERED: LOPERAMIDE 2 MG CAP PO PRN (09:41)
[2024-04-16] MEDS: ASPIRIN 81 MG PO SCH (10:32)
[2024-04-16] MEDS: CALCIUM CARB-VIT D 500 MG-5 MCG TAB PO SCH (10:32)
[2024-04-16] MEDS: lisinopriL 10 MG TAB PO SCH (10:32)
[2024-04-16] MEDS: LEVOTHYROXINE 125 MCG TAB PO SCH (10:33)
--- NOTE | 2024-04-16 10:58 | P.HPIM ---
History of Present Illness H&P Date: 04/16/24 Ngoc Elder, is a 73-year-old female who presented to [facility] emergency room with a chief complaint of severe weakness, mental status changes, and low sodium and low sodium. Patient stated that she was having increasing weakness, with confusion and mental status changes, she had a blood test as outpatient, and her daughter noticed that sodium was low at 123, patient had previous episodes of hyponatremia, and patient and her daughter decided to come to emergency room. She was evaluated in the emergency room vital examination on presentation revealed a temperature of 97.8 pulse 92 respiration 18 blood pressure 122/75 pulse ox 97% on room air Laboratory data revealed a white blood count of 11.5 hemoglobin 13.2 platelet count 514 sodium 122 potassium 4.9 chloride 92 CO2 19 BUN 21 creatinine 0.68 glucose level 208 magnesium 1.5 Testing in the emergency room revealed EKG done in the emergency room revealed supraventricular tachycardia, CT scan of the brain done in the emergency room without contrast revealed no acute intracranial hemorrhage midline shift or mass effect, CT scan of the thoracic and lumbar spine did not reveal any evidence of acute fracture or subluxation. Patient was admitted to medical floor for further evaluation and treatment Past medical history is significant for history of diabetes mellitus, history of hypertension, history of hyperlipidemia, history of hypothyroidism, history of gastroesophageal reflux disease, 30 of osteoarthritis, and history of depression On review of systems Past Medical History Past Medical History: Diabetes Mellitus, GERD/Reflux, Hyperlipidemia, Hypertension, Osteoarthritis (OA), Thyroid Disorder Additional Past Medical History / Comment(s): ARTHRITIS, hx UTI, bladder prolapse. History of Any Multi-Drug Resistant Organisms: None Reported Additional Past Surgical History / Comment(s): CATARACT, toe surgery for neuroma, D&C, partial thyroid. Past Anesthesia/Blood Transfusion Reactions: No Reported Reaction Past Psychological History: Depression Smoking Status: Never smoker Past Alcohol Use History: None Reported Past Drug Use History: None Reported - Past Family History Father Family Medical History: Diabetes Mellitus, Hyperlipidemia, Hypertension, Myocardial Infarction ([place]) Additional Family Medical History / Comment(s): AT AGE 83- Mother Family Medical History: Diabetes Mellitus Additional Family Medical History / Comment(s): AT AGE 81 FROM COMPLICATIONS FROM [place] Brother(s) Family Medical History: Diabetes Mellitus Sister(s) Family Medical History: Diabetes Mellitus Medications and Allergies Home Medications Medication Instructions Recorded Confirmed Type Aspirin 243 mg PO DAILY 09/05/14 04/16/24 History Calcium Carbonate/Vitamin D3 1 tab PO DAILY 09/05/14 04/16/24 History [Calcium 600-Vit D3 400 Tablet] Escitalopram [Lexapro] 20 mg PO DAILY 09/05/14 04/16/24 History Mirtazapine [Remeron] 15 mg PO HS 09/05/14 04/16/24 History Naproxen Sodium [Naprelan] 375 mg PO BID 09/05/14 04/16/24 History Omeprazole [PriLOSEC] 20 mg PO AC-BRKFST 09/05/14 04/16/24 History Simvastatin [Zocor] 20 mg PO HS 09/05/14 04/16/24 History metFORMIN HCL [Glucophage] 1,000 mg PO BID 09/05/14 04/16/24 History Fluconazole 200 mg PO DAILY PRN 04/07/24 04/16/24 History Insulin Glargine/Lixisenatide 20 units SQ DAILY 04/07/24 04/16/24 History [Soliqua 100 Unit-33 Mcg/ml Pen] Unk Azo Probiotic 1 tab PO DAILY 04/07/24 04/16/24 History Unk Nyamyc Powder 1 applic TOPICAL DIRECTED PRN 04/07/24 04/16/24 History Unk Nystatin Cream 1 applic TOPICAL DIRECTED PRN 04/07/24 04/16/24 History lisinopriL [Zestril] 10 mg PO DAILY 04/07/24 04/16/24 History ondansetron HCL [Ondansetron HCl] 8 mg PO DIRECTED PRN 04/07/24 04/16/24 History Cranberry Fruit Concentrate [Azo 250 mg PO DAILY 04/16/24 04/16/24 History Cranberry] D-Mannose 1 tab PO DAILY 04/16/24 04/16/24 History Levothyroxine Sodium [Synthroid] 125 mcg PO DAILY 04/16/24 04/16/24 History Loperamide [Imodium] 2 mg PO QID PRN 04/16/24 04/16/24 History Multivitamins, Thera [Multivitamin 1 tab PO DAILY 04/16/24 04/16/24 History (formulary)] Allergies Allergy/AdvReac Type Severity Reaction Status Date / Time No Known Allergies Allergy Verified 04/16/24 08:14 Physical Exam Vitals: Vital Signs Temp Pulse Pulse Resp BP BP Pulse Ox 04/16/24 08:13 98.2 F 70 18 143/78 99 04/16/24 06:10 66 18 133/65 96 04/16/24 04:00 68 18 122/62 95 04/16/24 02:00 73 18 129/63 99 04/16/24 01:00 75 18 129/63 95 04/15/24 22:33 97.8 F 92 18 122/75 97 Intake and Output 04/15/24 04/16/24 04/16/24 22:59 06:59 14:59 Other: Weight 113.398 kg 113.398 kg In general patient is alert and oriented x 3 in no distress HEENT head normocephalic and atraumatic Neck is supple no JVD no goiter no lymphadenopathy no carotid bruit Chest examination is clear to auscultation no crackles no wheezing Cardiac exam reveals regular heart sounds S1 and S2 no gallops no murmurs Abdomen is soft nontender no organomegaly with normal bowel sounds Extremity exam reveals no edema no cyanosis or clubbing Neurological examination reveals no gross focal deficits Results CBC & Chem 7: 04/15/24 22:55 04/15/24 22:55 Labs: Abnormal Lab Results - Last 24 Hours (Table) 04/15/24 04/15/24 04/15/24 Range/Units 22:55 22:55 22:56 WBC 11.5 H (3.8-10.6) k/uL Plt Count 514 H (150-450) k/uL Sodium 122 L (137-145) mmol/L Chloride 92 L (98-107) mmol/L Carbon Dioxide 19 L (22-30) mmol/L BUN 21 H (7-17) mg/dL Glucose 208 H (74-99) mg/dL POC Glucose (mg/dL) 208 H (70-110) mg/dL Magnesium 1.5 L (1.6-2.3) mg/dL Thrombosis Risk Factor Assmnt - Choose All That Apply Any of the Below Risk Factors Present?: Yes Each Factor Represents 1 point: Medical pt on bed rest Other Risk Factors: Yes Each Risk Factor Represents 2 Points: Age 61-74 years Thrombosis Risk Factor Assessment Total Risk Factor Score: 3 Thrombosis Risk Factor Assessment Level: Moderate Risk Assessment and Plan Assessment: 1. Hyponatremia 2. Chronic back pain. Patient has plans to follow with Dr. olmstead outpatient 3. History of diabetes mellitus home meds resumed 4. History of hyperlipidemia 5. History of essential hypertension 6. History of osteoarthritis 7. History of hypothyroid disorder 8. History of depression 9. History of bladder prolapse with frequent UTIs This time patient will be admitted Patient started on IV fluid Nephrology services consulted UA ordered Repeat labs ordered DVT prophylaxis Lovenox. GI prophylaxis Protonix Time with Patient: Greater than 30 (Greater than 60% of the total time spent in counseling and coordination of care)
[2024-04-16] MEDS: INSULIN DETEMIR (LEVEMIR) 100 UNIT/ML SYR SQ SCH (11:13)
[2024-04-16] MEDS: ACETAMINOPHEN TAB 325 MG TAB PO PRN (11:13)
[2024-04-16 11:24] LABS: Glucose,Whole Blood 150 mg/dL (70-110)
[2024-04-16 11:25] LABS: Basophils # (A) 0.1 k/uL (0-0.2); Basophils % (A) 1 %; Eosinophils # (A) 0.4 k/uL (0-0.7); Eosinophils % (A) 5 %; HGB 11.8 gm/dL (11.4-16.0); Lymphocytes # (A) 2.8 k/uL (1.0-4.8); Lymphocytes % (A) 38 %; MCH 28.6 pg (25.0-35.0); MCHC 32.9 g/dL (31.0-37.0); MCV 86.8 fL (80.0-100.0); Mean Platelet Volume 7.2; Monocytes # (A) 0.6 k/uL (0-1.0); Monocytes % (A) 8 %; Neutrophils # (A) 3.5 k/uL (1.3-7.7); Neutrophils % (A) 47 %; Platelet Count 469 k/uL (150-450); RBC 4.14 m/uL (3.80-5.40); RDW 12.7 % (11.5-15.5); WBC 7.4 k/uL (3.8-10.6)
[2024-04-16 11:34] LABS: ALT 16 U/L (4-34); AST 20 U/L (14-36); African American GFR (CKD) >90 (>60 ml/min/1.73 sqM); Albumin 3.5 g/dL (3.5-5.0); Albumin/Globulin Ratio 1.5; Alkaline Phosphatase 58 U/L (38-126); Anion Gap 3 mmol/L; Blood Urea Nitrogen 15 mg/dL (7-17); Calcium 8.7 mg/dL (8.4-10.2); Carbon Dioxide 26 mmol/L (22-30); Chloride 98 mmol/L (98-107); Globulin 2.4 g/dL; Glucose 153 mg/dL (74-99); Non-African American GFR(CKD) >90 (>60 ml/min/1.73 sqM); Potassium 4.5 mmol/L (3.5-5.1); Sodium 127 mmol/L (137-145); Total Bilirubin 0.5 mg/dL (0.2-1.3); Total Protein 5.9 g/dL (6.3-8.2)
--- NOTE | 2024-04-16 12:15 | P.NPCON ---
History of Present Illness - Reason for Consult hyponatremia - History of Present Illness Reason for consultation: Hyponatremia History of present illness: Patient is a 73-year-old female seen in renal consultation for hyponatremia. Sodium level was 122 on admission dated April 15, 2024 at 10:55 PM. She received 1 L bolus of normal saline and is currently receiving normal saline at 50 cc an hour. Sodium level this morning is 127. Patient does have history of diabetes. Patient states she has been eating fairly well but has been watching the carbohydrates due to history of diabetes. She does admit to drinking 3 to 4 glasses of water and 2 cups of coffee daily. Denies alcohol abuse. Denies use of diuretics. Patient does have chronic low back pain and takes NSAIDs twice daily. She is also on Lexapro. Blood sugars fairly well-controlled. Denies personal history of malignancy. No chest pain or shortness of breath. No history of kidney disease. Vital signs are stable. General: No acute distress. HEENT: Head exam is unremarkable. LUNGS: No audible rhonchi or wheezes. HEART: Rate and Rhythm are regular. ABDOMEN: Nontender. EXTREMITITES: No edema. Past Medical History Past Medical History: Diabetes Mellitus, GERD/Reflux, Hyperlipidemia, Hyp ertension, Osteoarthritis (OA), Thyroid Disorder Additional Past Medical History / Comment(s): ARTHRITIS, hx UTI, bladder prolapse. History of Any Multi-Drug Resistant Organisms: None Reported Additional Past Surgical History / Comment(s): CATARACT, toe surgery for neuroma, D&C, partial thyroid. Past Anesthesia/Blood Transfusion Reactions: No Reported Reaction Past Psychological History: Depression Smoking Status: Never smoker Past Alcohol Use History: None Reported Past Drug Use History: None Reported - Past Family History Father Family Medical History: Diabetes Mellitus, Hyperlipidemia, Hypertension, Myocardial Infarction (NH) Additional Family Medical History / Comment(s): AT AGE 83- Mother Family Medical History: Diabetes Mellitus Additional Family Medical History / Comment(s): AT AGE 81 FROM COMPLICATIONS FROM [place] Brother(s) Family Medical History: Diabetes Mellitus Sister(s) Family Medical History: Diabetes Mellitus Medications and Allergies Home Medications Medication Instructions Recorded Confirmed Type Aspirin 243 mg PO DAILY 09/05/14 04/16/24 History Calcium Carbonate/Vitamin D3 1 tab PO DAILY 09/05/14 04/16/24 History [Calcium 600-Vit D3 400 Tablet] Escitalopram [Lexapro] 20 mg PO DAILY 09/05/14 04/16/24 History Mirtazapine [Remeron] 15 mg PO HS 09/05/14 04/16/24 History Naproxen Sodium [Naprelan] 375 mg PO BID 09/05/14 04/16/24 History Omeprazole [PriLOSEC] 20 mg PO AC-BRKFST 09/05/14 04/16/24 History Simvastatin [Zocor] 20 mg PO HS 09/05/14 04/16/24 History metFORMIN HCL [Glucophage] 1,000 mg PO BID 09/05/14 04/16/24 History Fluconazole 200 mg PO DAILY PRN 04/07/24 04/16/24 History Insulin Glargine/Lixisenatide 20 units SQ DAILY 04/07/24 04/16/24 History [Soliqua 100 Unit-33 Mcg/ml Pen] Unk Azo Probiotic 1 tab PO DAILY 04/07/24 04/16/24 History Unk Nyamyc Powder 1 applic TOPICAL DIRECTED PRN 04/07/24 04/16/24 History Unk Nystatin Cream 1 applic TOPICAL DIRECTED PRN 04/07/24 04/16/24 History lisinopriL [Zestril] 10 mg PO DAILY 04/07/24 04/16/24 History ondansetron HCL [Ondansetron HCl] 8 mg PO DIRECTED PRN 04/07/24 04/16/24 History Cranberry Fruit Concentrate [Azo 250 mg PO DAILY 04/16/24 04/16/24 History Cranberry] D-Mannose 1 tab PO DAILY 04/16/24 04/16/24 History Levothyroxine Sodium [Synthroid] 125 mcg PO DAILY 04/16/24 04/16/24 History Loperamide [Imodium] 2 mg PO QID PRN 04/16/24 04/16/24 History Multivitamins, Thera [Multivitamin 1 tab PO DAILY 04/16/24 04/16/24 History (formulary)] Allergies Allergy/AdvReac Type Severity Reaction Status Date / Time No Known Allergies Allergy Verified 04/16/24 08:14 Physical Exam Vitals: Vital Signs Temp Pulse Pulse Resp BP BP Pulse Ox 04/16/24 08:13 98.2 F 70 18 143/78 99 04/16/24 06:10 66 18 133/65 96 04/16/24 04:00 68 18 122/62 95 04/16/24 02:00 73 18 129/63 99 04/16/24 01:00 75 18 129/63 95 04/15/24 22:33 97.8 F 92 18 122/75 97 Intake and Output 04/15/24 04/16/24 04/16/24 22:59 06:59 14:59 Other: Weight 113.398 kg 113.398 kg Results - Lab Results Most recent lab results Calcium 8.7 mg/dL (8.4-10.2) 04/16/24 11:07 Magnesium 1.5 mg/dL (1.6-2.3) L 04/15/24 22:55 04/16/24 11:07 04/16/24 11:07 Assessment and Plan Plan: Assessment: 1. Hypovolemic hyponatremia improving with IV fluids. Sodium level 122 on admission last night and 127 this morning. 2. Diabetes mellitus. 3. Benign hypertension. Stable. 4. Hypomagnesemia from poor intake. Plan: Hep-Lock IV fluids. Add 1500 cc fluid restriction. Encouraged oral intake. Check magnesium level today and replace as needed. Check TSH. Repeat labs in the morning. Thank you for the consultation. I will continue to follow the patient with you during her hospital stay.
[2024-04-16] MEDS: PATIENT'S OWN (Insulin Glargine/Lixisenatide [Soliqua 100 Unit-33 Mcg/Ml Pen] 3 ML In SQ SCH (13:23)
[2024-04-16] MEDS: NAPROXEN 250 MG TAB PO SCH (13:23)
[2024-04-16 18:09] LABS: Appearance,Urine Clear (Clear); Bilirubin,Urine Negative (Negative); Blood,Urine Negative (Negative); Color,Urine Colorless; Glucose,Urine (UA) 1+ (Negative); Hyaline Casts,Urine 1 /lpf (0-2); Ketones,Urine Trace (Negative); Leukocyte Esterase,Urine Trace (Negative); Mucus,Urine Rare /hpf; Nitrite,Urine Negative (Negative); PH, Urine 6.5 (5.0-8.0); Protein,Urine Negative (Negative); Squamous Epithelial Cell,Urine <1 /hpf (0-4); Urobilinogen,Urine <2.0 mg/dL (<2.0); WBC,Urine 3 /hpf (0-5)
[2024-04-16] MEDS: ATORVASTATIN 10 MG TAB PO SCH (19:49)
[2024-04-16] MEDS: metFORMIN 500 MG TAB PO SCH (19:50)
[2024-04-16] MEDS: MIRTAZAPINE 15 MG TAB PO SCH (19:50)
[2024-04-16] MEDS: traMADol 50 MG TAB PO PRN (20:47)
[2024-04-16 20:53] LABS: Glucose,Whole Blood 181 mg/dL (70-110)
[2024-04-17 06:00] LABS: Glucose,Whole Blood 126 mg/dL (70-110)
[2024-04-17] MEDS: PANTOPRAZOLE 40 MG TABLET PO SCH (06:01)
[2024-04-17 07:34] LABS: Glucose,Whole Blood 100 mg/dL (70-110)
[2024-04-17] MEDS: ESCITALOPRAM 20 MG TAB PO SCH (08:34)
[2024-04-17] MEDS: MULTIVITAMINS, THERA 1 EACH TAB PO SCH (08:34)
[2024-04-17] MEDS: ENOXAPARIN 40 MG/0.4 ML SYRINGE SQ SCH (08:34)
[2024-04-17 09:28] LABS: Basophils # (A) 0.08 X 10*3/uL (0.00-0.10); Basophils % (A) 0.9 %; Eosinophils # (A) 0.28 X 10*3/uL (0.04-0.35); Eosinophils % (A) 3.1 %; HCT 32.6 % (37.2-46.3); HGB 10.9 g/dL (12.0-15.0); Lymphocytes # (A) 4.24 X 10*3/uL (0.90-5.00); Lymphocytes % (A) 47.5 %; MCH 28.7 pg (27.0-32.0); MCHC 33.4 g/dL (32.0-37.0); MCV 85.8 FL (80.0-97.0); Mean Platelet Volume 8.5 FL (9.5-12.2); Monocytes % (A) 10.1 %; NRBC Per 100 WBC 0 X 10*3/uL (0.00-0.01); Neutrophils # (A) 3.41 X 10*3/uL (1.80-7.70); Neutrophils % (A) 38.3 %; Platelet Count 443 X 10*3/uL (140-440); RDW 12.9 % (11.5-14.5); WBC 8.92 X 10*3/uL (4.50-10.00)
--- NOTE | 2024-04-17 09:52 | P.PN ---
Subjective Progress Note Date: 04/17/24 Ngoc Elder, is a 73-year-old female who presented to [facility] emergency room with a chief complaint of severe weakness, mental status changes, and low sodium and low sodium. Patient stated that she was having increasing weakness, with confusion and mental status changes, she had a blood test as outpatient, and her daughter noticed that sodium was low at 123, patient had previous episodes of hyponatremia, and patient and her daughter decided to come to emergency room. She was evaluated in the emergency room vital examination on presentation revealed a temperature of 97.8 pulse 92 respiration 18 blood pressure 122/75 pulse ox 97% on room air Laboratory data revealed a white blood count of 11.5 hemoglobin 13.2 platelet count 514 sodium 122 potassium 4.9 chloride 92 CO2 19 BUN 21 creatinine 0.68 glucose level 208 magnesium 1.5 Testing in the emergency room revealed EKG done in the emergency room revealed supraventricular tachycardia, CT scan of the brain done in the emergency room without contrast revealed no acute intracranial hemorrhage midline shift or mass effect, CT scan of the thoracic and lumbar spine did not reveal any evidence of acute fracture or subluxation. Patient was admitted to medical floor for further evaluation and treatment Past medical history is significant for history of diabetes mellitus, history of hypertension, history of hyperlipidemia, history of hypothyroidism, history of gastroesophageal reflux disease, 30 of osteoarthritis, and history of depression On 04/17/2024 patient is alert and oriented x 3 resting comfortably in bed. Patient was restarted on IV fluid last night per nephrology services after decrease in sodium level. Repeat level has been ordered for this a.m. at this time patient denies chest pain or shortness of breath. Patient denies nausea vomiting or diarrhea. Patient denies any urinary burning or frequency Objective - Vital Signs Vital signs: Vital Signs Temp 97.6 F 04/17/24 08:00 Pulse 53 L 04/17/24 08:00 Resp 12 04/17/24 08:00 BP 125/69 04/17/24 08:00 Pulse Ox 99 04/17/24 08:00 FiO2 Intake & Output 04/16/24 04/17/24 04/17/24 18:59 06:59 18:59 Intake Total 780 Output Total 110 400 Balance -110 380 Weight 113.398 kg Intake: Oral 780 Output: Urine 110 400 Other: Voiding Method Toilet Toilet # Voids 1 - Exam In general patient is alert and oriented x 3 in no distress HEENT head normocephalic and atraumatic Neck is supple no JVD no goiter no lymphadenopathy no carotid bruit Chest examination is clear to auscultation no crackles no wheezing Cardiac exam reveals regular heart sounds S1 and S2 no gallops no murmurs Abdomen is soft nontender no organomegaly with normal bowel sounds Extremity exam reveals no edema no cyanosis or clubbing Neurological examination reveals no gross focal deficits - Labs CBC & Chem 7: 04/17/24 03:53 04/16/24 18:04 Labs: Abnormal Lab Results - Last 24 Hours (Table) 04/16/24 04/16/24 04/16/24 Range/Units 11:07 11:07 11:23 RBC (4.10-5.20) X 10*6/uL Hgb (12.0-15.0) g/dL Hct (37.2-46.3) % Plt Count 469 H (150-450) k/uL MPV (9.5-12.2) FL Sodium 127 L (137-145) mmol/L Glucose 153 H (74-99) mg/dL POC Glucose (mg/dL) 150 H (70-110) mg/dL Total Protein 5.9 L (6.3-8.2) g/dL Urine Glucose (UA) (Negative) Urine Ketones (Negative) Ur Leukocyte Esterase (Negative) Urine Mucus (None) /hpf 04/16/24 04/16/24 04/16/24 Range/Units 18:00 18:04 20:51 RBC (4.10-5.20) X 10*6/uL Hgb (12.0-15.0) g/dL Hct (37.2-46.3) % Plt Count (150-450) k/uL MPV (9.5-12.2) FL Sodium 124 L (137-145) mmol/L Glucose (74-99) mg/dL POC Glucose (mg/dL) 181 H (70-110) mg/dL Total Protein (6.3-8.2) g/dL Urine Glucose (UA) 1+ H (Negative) Urine Ketones Trace H (Negative) Ur Leukocyte Esterase Trace H (Negative) Urine Mucus Rare H (None) /hpf 04/17/24 04/17/24 Range/Units 03:53 05:59 RBC 3.80 L (4.10-5.20) X 10*6/uL Hgb 10.9 L (12.0-15.0) g/dL Hct 32.6 L (37.2-46.3) % Plt Count 443 H (150-450) k/uL MPV 8.5 L (9.5-12.2) FL Sodium (137-145) mmol/L Glucose (74-99) mg/dL POC Glucose (mg/dL) 126 H (70-110) mg/dL Total Protein (6.3-8.2) g/dL Urine Glucose (UA) (Negative) Urine Ketones (Negative) Ur Leukocyte Esterase (Negative) Urine Mucus (None) /hpf Assessment and Plan Assessment: 1. Hyponatremia 2. Chronic back pain. Patient has plans to follow with Dr. olmstead outpatient 3. History of diabetes mellitus home meds resumed 4. History of hyperlipidemia 5. History of essential hypertension 6. History of osteoarthritis 7. History of hypothyroid disorder 8. History of depression 9. History of bladder prolapse with frequent UTIs This time patient will be admitted Patient started on IV fluid Nephrology services consulted UA ordered Repeat labs ordered DVT prophylaxis Lovenox. GI prophylaxis Protonix
[2024-04-17 10:14] LABS: ALT 14 U/L (8-44); AST 18 U/L (13-35); Albumin 3.8 g/dL (3.8-4.9); Albumin/Globulin Ratio 2.11 Ratio (1.60-3.17); Alkaline Phosphatase 51 U/L (41-126); Blood Urea Nitrogen 20.7 mg/dL (9.0-27.0); Calcium 8.6 mg/dL (8.7-10.3); Carbon Dioxide 21.4 mmol/L (21.6-31.8); Chloride 98 mmol/L (96-109); Globulin 1.8 g/dL (1.6-3.3); Glucose 104 mg/dL (70-110); Potassium 4.6 mmol/L (3.5-5.5); Sodium 131 mmol/L (135-145); Total Bilirubin 0.2 mg/dL (0.3-1.2); Total Protein 5.6 g/dL (6.2-8.2)
[2024-04-17 11:40] LABS: Glucose,Whole Blood 134 mg/dL (70-110)
--- NOTE | 2024-04-17 12:29 | P.PN ---
Subjective patient is seen for follow-up for hyponatremia. It is hypovolemic and improved with normal saline. Serum sodium at 131 today. No significant complaints. Patient is tolerating oral intake. She wants to go home. Objective - Vital Signs Vital signs: Vital Signs Temp 97.6 F 04/17/24 08:00 Pulse 53 L 04/17/24 08:00 Resp 12 04/17/24 08:00 BP 125/69 04/17/24 08:00 Pulse Ox 99 04/17/24 08:00 FiO2 Intake & Output 04/16/24 04/17/24 04/17/24 18:59 06:59 18:59 Intake Total 780 Output Total 110 400 Balance -110 380 Weight 113.398 kg Intake: Oral 780 Output: Urine 110 400 Other: Voiding Method Toilet Toilet # Voids 1 - Exam patient is awake, comfortable, no acute distress. Examination of the heart S1 and S2 Examination the lungs bilateral breath sounds are heard Abdomen is soft nontender Examination of lower extremity shows no evidence of edema SURFACE GRINDER exam grossly intact - Labs CBC & Chem 7: 04/17/24 03:53 04/17/24 03:53 Labs: Abnormal Lab Results - Last 24 Hours (Table) 04/16/24 04/16/24 04/16/24 Range/Units 18:00 18:04 20:51 RBC (4.10-5.20) X 10*6/uL Hgb (12.0-15.0) g/dL Hct (37.2-46.3) % Plt Count (140-440) X 10*3/uL MPV (9.5-12.2) FL Sodium 124 L (137-145) mmol/L Carbon Dioxide (21.6-31.8) mmol/L BUN/Creatinine Ratio (12.00-20.00) Ratio POC Glucose (mg/dL) 181 H (70-110) mg/dL Calcium (8.7-10.3) mg/dL Total Bilirubin (0.3-1.2) mg/dL Total Protein (6.2-8.2) g/dL Urine Glucose (UA) 1+ H (Negative) Urine Ketones Trace H (Negative) Ur Leukocyte Esterase Trace H (Negative) Urine Mucus Rare H (None) /hpf 04/17/24 04/17/24 04/17/24 Range/Units 03:53 03:53 05:59 RBC 3.80 L (4.10-5.20) X 10*6/uL Hgb 10.9 L (12.0-15.0) g/dL Hct 32.6 L (37.2-46.3) % Plt Count 443 H (140-440) X 10*3/uL MPV 8.5 L (9.5-12.2) FL Sodium 131 L (137-145) mmol/L Carbon Dioxide 21.4 L (21.6-31.8) mmol/L BUN/Creatinine Ratio 23.00 H (12.00-20.00) Ratio POC Glucose (mg/dL) 126 H (70-110) mg/dL Calcium 8.6 L (8.7-10.3) mg/dL Total Bilirubin 0.2 L (0.3-1.2) mg/dL Total Protein 5.6 L (6.2-8.2) g/dL Urine Glucose (UA) (Negative) Urine Ketones (Negative) Ur Leukocyte Esterase (Negative) Urine Mucus (None) /hpf 04/17/24 Range/Units 11:39 RBC (4.10-5.20) X 10*6/uL Hgb (12.0-15.0) g/dL Hct (37.2-46.3) % Plt Count (140-440) X 10*3/uL MPV (9.5-12.2) FL Sodium (137-145) mmol/L Carbon Dioxide (21.6-31.8) mmol/L BUN/Creatinine Ratio (12.00-20.00) Ratio POC Glucose (mg/dL) 134 H (70-110) mg/dL Calcium (8.7-10.3) mg/dL Total Bilirubin (0.3-1.2) mg/dL Total Protein (6.2-8.2) g/dL Urine Glucose (UA) (Negative) Urine Ketones (Negative) Ur Leukocyte Esterase (Negative) Urine Mucus (None) /hpf Assessment and Plan Assessment: 1. Hypovolemic hyponatremia improving with IV fluids. Sodium level 122 on admission and 131 this morning. 2. Diabetes mellitus. 3. Benign hypertension. Stable. 4. Hypomagnesemia from poor intake. Plan: can DC IV fluids of tolerating oral intake. Okay for discharge from nephrology standpoint. Repeat labs as outpatient in 2-3 days.
[2024-04-17] MEDS: FLUCONAZOLE 150 MG TAB PO SCH (14:31)
[2024-04-17 16:43] LABS: Glucose,Whole Blood 120 mg/dL (70-110)
[2024-04-17 20:06] LABS: Glucose,Whole Blood 154 mg/dL (70-110)
[2024-04-18 06:06] LABS: Glucose,Whole Blood 97 mg/dL (70-110)
[2024-04-18 09:12] VITALS: BP 129/78; PULSE 65; RESP 16; TEMP 97.5
[2024-04-18 09:18] LABS: Basophils # (A) 0.09 X 10*3/uL (0.00-0.10); Basophils % (A) 0.9 %; Eosinophils # (A) 0.38 X 10*3/uL (0.04-0.35); Eosinophils % (A) 3.8 %; HCT 32.4 % (37.2-46.3); HGB 10.6 g/dL (12.0-15.0); Lymphocytes # (A) 4.71 X 10*3/uL (0.90-5.00); Lymphocytes % (A) 46.8 %; MCH 28.8 pg (27.0-32.0); MCHC 32.7 g/dL (32.0-37.0); Mean Platelet Volume 8.6 FL (9.5-12.2); Monocytes # (A) 1.08 X 10*3/uL (0.20-1.00); Monocytes % (A) 10.7 %; NRBC Per 100 WBC 0 X 10*3/uL (0.00-0.01); Neutrophils # (A) 3.79 X 10*3/uL (1.80-7.70); Neutrophils % (A) 37.6 %; Platelet Count 411 X 10*3/uL (140-440); RBC 3.68 X 10*6/uL (4.10-5.20); RDW 12.8 % (11.5-14.5); WBC 10.07 X 10*3/uL (4.50-10.00)
[2024-04-18 10:37] LABS: ALT 13 U/L (8-44); AST 21 U/L (13-35); Albumin 3.8 g/dL (3.8-4.9); Albumin/Globulin Ratio 2.11 Ratio (1.60-3.17); Alkaline Phosphatase 51 U/L (41-126); BUN/Creat Ratio 26.91 Ratio (12.00-20.00); Blood Urea Nitrogen 29.6 mg/dL (9.0-27.0); Calcium 8.9 mg/dL (8.7-10.3); Carbon Dioxide 21.4 mmol/L (21.6-31.8); Chloride 98 mmol/L (96-109); Globulin 1.8 g/dL (1.6-3.3); Glucose 89 mg/dL (70-110); Sodium 131 mmol/L (135-145); Total Bilirubin 0.3 mg/dL (0.3-1.2); Total Protein 5.6 g/dL (6.2-8.2)
--- NOTE | 2024-04-18 11:21 | P.DS ---
Providers Date of admission: 04/16/24 01:16 Expected date of discharge: 04/18/24 Attending physician: Rico Hui Consults: 04/16/24 09:41 Consult Physician Urgent Consulting Provider: Kristen Garcia Consult Reason/Comments: hyponatremia Do you want consulting provider notified?: Yes Primary care physician: Rico Korina [facility] Course: Diagnosis on discharge: 1. Hyponatremia 2. Chronic back pain. Patient has plans to follow with Dr. olmstead outpatient 3. History of diabetes mellitus home meds resumed 4. History of hyperlipidemia 5. History of essential hypertension 6. History of osteoarthritis 7. History of hypothyroid disorder 8. History of depression 9. History of bladder prolapse with frequent UTIs Hospital course: Ngoc Elder, is a 73-year-old female who presented to [facility] emergency room with a chief complaint of severe weakness, mental status changes, and low sodium and low sodium. Patient stated that she was having increasing weakness, with confusion and mental status changes, she had a blood test as outpatient, and her daughter noticed that sodium was low at 123, patient had previous episodes of hyponatremia, and patient and her daughter decided to come to emergency room. She was evaluated in the emergency room vital examination on presentation revealed a temperature of 97.8 pulse 92 respiration 18 blood pressure 122/75 pulse ox 97% on room air Laboratory data revealed a white blood count of 11.5 hemoglobin 13.2 platelet count 514 sodium 122 potassium 4.9 chloride 92 CO2 19 BUN 21 creatinine 0.68 glucose level 208 magnesium 1.5 Testing in the emergency room revealed EKG done in the emergency room revealed supraventricular tachycardia, CT scan of the brain done in the emergency room without contrast revealed no acute intracranial hemorrhage midline shift or mass effect, CT scan of the thoracic and lumbar spine did not reveal any evidence of acute fracture or subluxation. Patient was admitted to medical floor for further evaluation and treatment Past medical history is significant for history of diabetes mellitus, history of hypertension, history of hyperlipidemia, history of hypothyroidism, history of gastroesophageal reflux disease, 30 of osteoarthritis, and history of depression On 04/17/2024 patient is alert and oriented x 3 resting comfortably in bed. Patient was restarted on IV fluid last night per nephrology services after decrease in sodium level. Repeat level has been ordered for this a.m. at this time patient denies chest pain or shortness of breath. Patient denies nausea vomiting or diarrhea. Patient denies any urinary burning or frequency On 04/18/2024 patient was seen and examined on the medical floor she is alert and oriented x 3 in no apparent distress there is no fever or chills no headache or dizziness no chest pain no shortness of breath no cough no nausea or vomiting no abdominal pain no diarrhea no urinary symptoms. Sodium is staying up at 131, patient was cleared by nephrology to go home, will follow-up in the office in 2 to 3 days and recheck labs. Patient Condition at Discharge: Fair Plan - Discharge Summary Discharge Rx Participant: No New Discharge Prescriptions: New Fluconazole [Diflucan] 150 mg PO DAILY 3 Days #3 tab Continue Aspirin 243 mg PO DAILY Escitalopram [Lexapro] 20 mg PO DAILY Omeprazole [PriLOSEC] 20 mg PO AC-BRKFST Naproxen Sodium [Naprelan] 375 mg PO BID metFORMIN HCL [Glucophage] 1,000 mg PO BID Simvastatin [Zocor] 20 mg PO HS Calcium Carbonate/Vitamin D3 [Calcium 600-Vit D3 400 Tablet] 1 tab PO DAILY Mirtazapine [Remeron] 15 mg PO HS Insulin Glargine/Lixisenatide [Soliqua 100 Unit-33 Mcg/ml Pen] 20 units SQ DAILY Unk Nystatin Cream 1 applic TOPICAL DIRECTED PRN PRN Reason: yeast Multivitamins, Thera [Multivitamin (formulary)] 1 tab PO DAILY Levothyroxine Sodium [Synthroid] 125 mcg PO DAILY D-Mannose 1 tab PO DAILY ondansetron HCL [Zofran] 8 mg PO DIRECTED PRN PRN Reason: Nausea lisinopriL [Zestril] 10 mg PO DAILY Unk Nyamyc Powder 1 applic TOPICAL DIRECTED PRN PRN Reason: yeast Unk Azo Probiotic 1 tab PO DAILY Cranberry Fruit Concentrate [Azo Cranberry] 250 mg PO DAILY Loperamide [Imodium] 2 mg PO QID PRN PRN Reason: Diarrhea Discontinued Fluconazole 200 mg PO DAILY PRN PRN Reason: yeast infections Discharge Medication List Aspirin 243 mg PO DAILY 09/05/14 [History] Calcium Carbonate/Vitamin D3 [Calcium 600-Vit D3 400 Tablet] 1 tab PO DAILY 09/05/14 [History] Escitalopram [Lexapro] 20 mg PO DAILY 09/05/14 [History] Mirtazapine [Remeron] 15 mg PO HS 09/05/14 [History] Naproxen Sodium [Naprelan] 375 mg PO BID 09/05/14 [History] Omeprazole [PriLOSEC] 20 mg PO AC-BRKFST 09/05/14 [History] Simvastatin [Zocor] 20 mg PO HS 09/05/14 [History] metFORMIN HCL [Glucophage] 1,000 mg PO BID 09/05/14 [History] Insulin Glargine/Lixisenatide [Soliqua 100 Unit-33 Mcg/ml Pen] 20 units SQ DAILY 04/07/24 [History] Unk Azo Probiotic 1 tab PO DAILY 04/07/24 [History] Unk Nyamyc Powder 1 applic TOPICAL DIRECTED PRN 04/07/24 [History] Unk Nystatin Cream 1 applic TOPICAL DIRECTED PRN 04/07/24 [History] lisinopriL [Zestril] 10 mg PO DAILY 04/07/24 [History] ondansetron HCL [Zofran] 8 mg PO DIRECTED PRN 04/07/24 [History] Cranberry Fruit Concentrate [Azo Cranberry] 250 mg PO DAILY 04/16/24 [History] D-Mannose 1 tab PO DAILY 04/16/24 [History] Levothyroxine Sodium [Synthroid] 125 mcg PO DAILY 04/16/24 [History] Loperamide [Imodium] 2 mg PO QID PRN 04/16/24 [History] Multivitamins, Thera [Multivitamin (formulary)] 1 tab PO DAILY 04/16/24 [History] Fluconazole [Diflucan] 150 mg PO DAILY 3 Days #3 tab 04/18/24 [Rx] Follow up Appointment(s)/Referral(s): Rico Hui MD [Primary Care Provider] - 1-2 days (Office is closed at time of discharge. Please call for follow-up appointment.)
--- NOTE | 2024-04-18 13:05 | P.PN ---
Subjective patient is seen for follow-up for hyponatremia. It is hypovolemic and improved with normal saline. Serum sodium at 131 today. No significant complaints. Patient is tolerating oral intake. she is going home Objective - Vital Signs Vital signs: Vital Signs Temp 97.5 F L 04/18/24 07:19 Pulse 65 04/18/24 07:19 Resp 16 04/18/24 07:19 BP 129/78 04/18/24 07:19 Pulse Ox 98 04/18/24 07:19 FiO2 Intake & Output 04/17/24 04/18/24 04/18/24 18:59 06:59 18:59 Intake Total 240 Balance 240 Intake: Oral 240 Other: Voiding Method Toilet # Voids 1 1 - Exam patient is awake, comfortable, no acute distress. Examination of lower extremity shows no evidence of edema SAFETY TRAINER exam grossly intact - Labs CBC & Chem 7: 04/18/24 04:11 04/18/24 04:11 Labs: Abnormal Lab Results - Last 24 Hours (Table) 04/17/24 04/17/24 04/18/24 Range/Units 16:42 19:58 04:11 WBC 10.07 H (4.50-10.00) X 10*3/uL RBC 3.68 L (4.10-5.20) X 10*6/uL Hgb 10.6 L (12.0-15.0) g/dL Hct 32.4 L (37.2-46.3) % MPV 8.6 L (9.5-12.2) FL Monocytes # 1.08 H (0.20-1.00) X 10*3/uL Eosinophils # 0.38 H (0.04-0.35) X 10*3/uL Sodium (135-145) mmol/L Carbon Dioxide (21.6-31.8) mmol/L BUN (9.0-27.0) mg/dL Est GFR (CKD-EPI) (>=60) BUN/Creatinine Ratio (12.00-20.00) Ratio POC Glucose (mg/dL) 120 H 154 H (70-110) mg/dL Total Protein (6.2-8.2) g/dL 04/18/24 Range/Units 04:11 WBC (4.50-10.00) X 10*3/uL RBC (4.10-5.20) X 10*6/uL Hgb (12.0-15.0) g/dL Hct (37.2-46.3) % MPV (9.5-12.2) FL Monocytes # (0.20-1.00) X 10*3/uL Eosinophils # (0.04-0.35) X 10*3/uL Sodium 131 L (135-145) mmol/L Carbon Dioxide 21.4 L (21.6-31.8) mmol/L BUN 29.6 H (9.0-27.0) mg/dL Est GFR (CKD-EPI) 54 L (>=60) BUN/Creatinine Ratio 26.91 H (12.00-20.00) Ratio POC Glucose (mg/dL) (70-110) mg/dL Total Protein 5.6 L (6.2-8.2) g/dL Assessment and Plan Assessment: 1. Hypovolemic hyponatremia improving with IV fluids. Sodium level 122 on admission and staying at 131 now. 2. Diabetes mellitus. 3. Benign hypertension. Stable. 4. Hypomagnesemia from poor intake. Plan: Okay for discharge from nephrology standpoint. Repeat labs as outpatient in 2-3 days. Maintain good oral intake particularly protein.
--- NOTE | 2024-04-20 19:13 | CDI ---
Documentation Clarification Form Date: 04/20/2024 06:38:28 PM From: Luisana Ozuna Phone: Admit Date: 04/16/2024 01:16:00 AM Patient Name: Ngoc Elder Visit Number: [id number] Discharge Date: 04/18/2024 12:38:00 PM ATTENTION: The Clinical Documentation Specialists (CDI) and [facility] Coding Staff appreciate your assistance in clarifying documentation. Please respond to the clarification below the line at the bottom and electronically sign. The CDI & [facility] Coding staff will review the response and follow-up if needed. Please note: Queries are made part of the Legal Health Record. If you have any questions, please contact the author of this message via ITS. Dr. Rico Hui Your patient has an abnormal lab value: Glucose 208 04/15. Please clarify if there is an additional diagnosis and/or clinical significance related to this value. History/Risk Factors: 73yo F, DMII, HTN, HLD, GERD, OA,hypothyroidism, depression Clinical indicators: Glucose: 04/15 208 04/17 126-181 04/18 120 Treatment: Home Medications: metformin HCL [Glucophage] 1,000 mg PO BID; insulin Glargine/Lixisenatide 20 units SQ DAILY Is there an additional diagnosis and/or clinical significance related to the above lab result/information? [ xxxx ] DMII w hyperglycemia [ ] No additional diagnosis/Not clinically significant [ ] Other, please specify [ ] Unable to determine (Template Last Revised: November 2020) MTDD
== END 2024-04-18 12:38 | disposition home or self-care (01) | DRG 641 ==
LOC: EC 22:24 → 4SSUR 04-16 01:16
PROVIDERS: ADMIT Internal Medicine; ATTEND Internal Medicine
DX: E87.1 Hypo-osmolality and hyponatremia (principal); I47.10 Supraventricular tachycardia, unspecified; E11.65 Type 2 diabetes mellitus with hyperglycemia; Z79.4 Long term (current) use of insulin; E03.9 Hypothyroidism, unspecified; F32.A Depression, unspecified; I10 Essential (primary) hypertension; E86.1 Hypovolemia; G89.29 Other chronic pain; M54.50 Low back pain, unspecified; E78.5 Hyperlipidemia, unspecified; E83.42 Hypomagnesemia; M19.90 Unspecified osteoarthritis, unspecified site; N81.10 Cystocele, unspecified; Z79.82 Long term (current) use of aspirin; Z79.1 Long term (current) use of non-steroidal anti-inflammatories (NSAID); Z79.84 Long term (current) use of oral hypoglycemic drugs; Z79.890 Hormone replacement therapy; Z87.440 Personal history of urinary (tract) infections; Z79.899 Other long term (current) drug therapy
CPT/HCPCS: 36415; 70450; 72128; 72131; 80053; 81001; 83735; 84295; 84443; 85025; 87040; 93005; 96360; 96361; 99285

== ENCOUNTER → 2024-04-27 | Outpatient (CLI) | payer MEDICARE ==
--- NOTE | 2024-04-28 23:25 | BD ---
EXAMINATION TYPE: Axial Bone Density DATE OF EXAM: 04/27/2024 CLINICAL HISTORY: 73 years old Female. ICD-10 CODE: N95.1 POST MENOPAUSAL SYMPTOMS Height: 65.5 in Weight: 257 lbs FRAX RISK QUESTIONS: History of Fracture in Adulthood: lt ankle age 73 EXAM MEASUREMENTS: Bone mineral densitometry was performed using the [employer] System. Bone mineral density as measured about the Lumbar spine is: ----- L1-L4(G/cm2): 1.462 T Score Values are as follows: ----- L1: 1.1 ----- L2: 1.6 ----- L3: 3.2 ----- L4: 3.0 ----- L1-L4: 2.4 Z Score Values are as follows: ----- L1: 1.6 ----- L2: 2.2 ----- L3: 3.7 ----- L4: 3.5 ----- L1-L4: 2.9 Bone mineral density baseline Bone mineral density about the R hip (g/cm2): 1.035 Bone mineral density about the L hip (g/cm2): 1.087 T Score values are as follows: -----R Neck: -0.8 -----L Neck: -0.1 -----R Total: 0.2 -----L Total: 0.6 Z Score values are as follows: -----R Neck: 0.2 -----L Neck: 0.9 -----R Total: 0.9 -----L Total: 1.3 Bone mineral density baseline FRAX%s: The graph provided illustrates a 11.9% chance for a major osteoporotic fx and a 1.0% chance f or the hips probability for fx in 10 years time. IMPRESSION: Normal (Values between +1 and -1 indicate normal bone mass). Consider repeating this study in 5 year s or sooner if there is some new clinical indication. NOTE: T-SCORE=SD OF THE YOUNG ADULT MEAN.
== END | disposition home or self-care (01) ==
LOC: RADBDWWP 13:45
PROVIDERS: ATTEND Internal Medicine
DX: N95.1 Menopausal and female climacteric states (principal)
CPT/HCPCS: 77080

== ENCOUNTER → 2024-07-29 | Outpatient (CLI) | payer MEDICARE ==
[2024-07-29 14:42] VITALS: BP 135/77; PULSE 94; RESP 16
--- NOTE | 2024-07-29 15:44 | P.PAINPG ---
PQRS Measure Charge Sheet Comment: HISTORY OF PRESENT ILLNESS: A 73 yr old female w daughter at side presents today w severe and chronic LBP > 1 yr secondary to radiculopathy, spondylosis and facet arthropathy without myelopathy for evaluation s/p BL TPIs C2-T2 #1. Pt states she experienced 70 % pain relief x 12 wks s/p procedure. Pt states pain level is provoked at 9 /10 in intensity, constant, localized in the lower lumbar spine, predominantly axial, achy in character w occasional shooting pain towards the BL hips. Pain is provoked by walking/ standing for periods > 10 min. Pain is alleviated by PT x 2 wks in May 2024 (which provoked pain), physician guided stretches daily since Mar 2024, heat, medications, manual massage, use of a wheelchair for ambulatory assistance, repositioning and rest. Interventional procedures include BL TPIs C2-T2 x1 Medications include ASA REVIEW OF ORGAN SYSTEMS: CONSTITUTIONAL: No fevers or chills. No recent weight loss. NEUROLOGICAL: + numbness and tingling along the distal extremities. No seizure disorders or headaches. MUSCULOSKELETAL: + pain PSYCHIATRIC: Denies current depression or suicidal thoughts. Physical Examinations : Constitutional : Cooperative , not in acute distress . Neurologic : Cranial nerve II to XII intact. No focal neurological deficits. Psychiatric : alert & oriented x 3. Matching mood & appropriate affect. Judgment & insight intact. Musculoskeletal : Cervical Spine Motor strength in the deltoid and biceps: Normal right side. Normal Left side Motor strength biceps and the wrist extensors: Normal right side . Normal left side Motor strength in the triceps muscle: Normal right side. Normal left side Deep tendon reflexes: Normal at the biceps. Normal at Brachioradialis. Normal at triceps Vertebral body tenderness to deep palpation over Cervical facet loading test: positive bilaterally Spurling test: positive bilaterally Neck distraction test: positive bilaterally Nabil sign: positive bilaterally Lumbar spine Motor strength lower extremities ,thigh and legs 5/5 Right side , 5/5 Left side Deep tendon reflexes : Normal Knee Jerk. Normal Ankle Jerk Vertebral body tenderness over L4 Gee Test positive BL L4-L5 Lumbar facet Loading Test: positive Right / positive Left Range of motion of the lumbar spine Flexion 30 degrees, extension 10 degrees Straight Leg Raise test: Left/ Right positive at degree Toya test: positive right / positive left. Severe tenderness over the Sacroiliac joint on the Right / Left sides Gaenslen test: positive bilaterally Seated flexion test: positive bilaterally. Sacral spine : Severe tenderness over the Sacroiliac joint: right side / left side Range of motion: Flexion of the lumbar spine <60 degrees Range of motion: Extension of the lumbar spine <20 degrees Gaenslen's Test positive Toya test: positive right side / left side Thigh Thrust Test Sacral Thrust Test Imaging: X ray of the lumbar spine from 11/25/[address] non contrast of the thoracic/ lumbar spine from 04/15/24 reviewed Assessment/ Plan : Lumbar radiculopathy Recommendation of LUI L4-L5 #1. Risks, benefits of procedure discussed and pt verbalized understanding. Protocol for discontinuation/ continuation of medications chasidy procedure discussed. All questions answered. I have spent greater than 30 minutes on patient care today. Dr Partida was available by phone for the evaluation of this patient. The time was used to review the medical records including relevant urine studies and Prescription history (MAPs), review of the available imaging, evaluation and examination of the patient, coordination of care with the medical staff and if applicable referring physicians, as well as creation of the medical record PQRS Narrative: Smoking Status Never smoker Hx Alcohol Use (MH) No Home Medications: Ambulatory Orders Aspirin 243 mg PO DAILY 09/05/14 Calcium Carbonate/Vitamin D3 [Calcium 600-Vit D3 400 Tablet] 1 tab PO DAILY 09/05/14 Escitalopram [Lexapro] 20 mg PO DAILY 09/05/14 Mirtazapine [Remeron] 15 mg PO HS 09/05/14 Naproxen Sodium [Naprelan] 375 mg PO BID 09/05/14 Omeprazole [PriLOSEC] 20 mg PO AC-BRKFST 09/05/14 Simvastatin [Zocor] 20 mg PO HS 09/05/14 metFORMIN HCL [Glucophage] 1,000 mg PO BID 09/05/14 Insulin Glargine/Lixisenatide [Soliqua 100 Unit-33 Mcg/ml Pen] 20 units SQ DAILY 04/07/24 Unk Azo Probiotic 1 tab PO DAILY 04/07/24 Unk Nyamyc Powder 1 applic TOPICAL DIRECTED PRN 04/07/24 Unk Nystatin Cream 1 applic TOPICAL DIRECTED PRN 04/07/24 lisinopriL [Zestril] 10 mg PO DAILY 04/07/24 ondansetron HCL [Zofran] 8 mg PO DIRECTED PRN 04/07/24 Cranberry Fruit Concentrate [Azo Cranberry] 250 mg PO DAILY 04/16/24 D-Mannose 1 tab PO DAILY 04/16/24 Levothyroxine Sodium [Synthroid] 125 mcg PO DAILY 04/16/24 Loperamide [Imodium] 2 mg PO QID PRN 04/16/24 Multivitamins, Thera [Multivitamin (formulary)] 1 tab PO DAILY 04/16/24 Fluconazole [Diflucan] 150 mg PO DAILY 3 Days #3 tab 04/18/24 Controlled Substance Measures - Controlled Substance Measures Is patient prescribed a controlled substance at discharge?: No
== END ==
LOC: PNWHC3 14:14
PROVIDERS: ATTEND Specialist
DX: M54.16 Radiculopathy, lumbar region (principal)
CPT/HCPCS: 99211

== ENCOUNTER 2024-10-14 12:54 | Day surgery (SDC) | payer MEDICARE ==
[2024-10-13 12:04] VITALS: BMI 36.6
[2024-10-14 13:45] VITALS: TEMP 97.2
[2024-10-14 14:04] LABS: Glucose,Whole Blood 182 mg/dL (70-110)
[2024-10-14] MEDS ORDERED: methylPREDNISolone ACETATE 40 MG/ML 1 ML VIAL ONE (14:31)
[2024-10-14] MEDS ORDERED: IOPAMIDOL M200 10 ML VIAL ONE (14:31)
--- NOTE | 2024-10-14 14:38 | P.PCN ---
Date of Procedure: 10/14/24 Procedure(s) Performed: PREOPERATIVE DIAGNOSIS: 1- Lumbar Degenerative Disc Diseases 2-Lumbar spondylosis with Facet arthropathy without myelopathy. 3-lumbar radiculopathy POSTOPERATIVE DIAGNOSIS: 1-lumbar degenerative disc disease. 2-lumbar spondylosis with facet arthropathy without myelopathy. 3-lumbar radiculopathy. PROCEDURE 1. Lumbar epidural steroid injection under fluoroscopic guidance at the L4-5 level. (Fluoroscopy imaging was available in radiology department) 2. Lumbar epidurogram. ANESTHESIA: Lidocaine 1% 3 and then only. EBL: Minimal PROCEDURE INDICATION: The patient with low back pain and radiculitis symptoms unresponsive to conservative treatment. Fluoroscopy was used to optimize visualization of the needle placement and to maximize safety. PROCEDURE DESCRIPTION / TECHNIQUE: The patient was seen and identified in the preoperative area. Risks, benefits, complications including but not limited to infections ,bleeding ,allergic reaction to the medications ,nerve damage and not complete pain releife , and alternatives were discussed with the patient. The patient agreed to proceed with the procedure and signed the consent, and vital signs were stable. Patient was taken to the OR and time out was completed. The patient was placed in the prone position on procedure table and a pillow was placed under the abdomen to reduce lumbar lordosis. The lumbosacral area was prepped and draped in the usual sterile fashion.ere closely monitored during the procedure. Vital signs was monitered during the entire procedure. Using anterior-posterior fluoroscopy, the L4-5 interlaminar space was identified and the skin over this site was marked and then infiltrated with 1% lidocaine subcutaneously. Subsequently, a 20-gauge Tuohy epidural needle was inserted and advanced toward the epidural space using the ``Loss of resistance technique and guided by AP and lateral fluoroscopy. The correct needle position in the epidural space was verified with the injection of 2 mL of the water soluble contrast dye Isovue 200 contrast and observing an excellent epidurogram with t he epidural spread of the dye, after negative aspiration for blood and CSF and in the absence of paresthesias. Again after negative aspiration, a 5 ml mixture containing 40 mg of Depo-medrol ( Preservetive Free ), and 2 ml of preservative free Normal Saline, and 2 ml of preservative free lidocaine 1% solution was injected and a washout of epidurogram was seen. Needle was withdrawn intact, skin was cleansed, and bandages were applied. COMPLICATIONS: None DISPOSITION / PLANS: The patient was placed in a supine position and transferred to the recovery area in a stable condition for observation. There was no evidence of lower extremity motor or sensory deficit after the procedure. Patient was discharged from the recovery room after meeting discharge criteria. Home discharge instructions were given to the patient by the staff. The patient was reexamined prior to discharge. The patient will schedule a follow up in the clinic in 2-4 weeks.
--- NOTE | 2024-10-14 14:53 | FL ---
Fluoroscopy History: Lumbar Epid Inj 4 SEC [place] .[id number] DAP DOSE [facility], , 10/14/2024 2:50 PM
[2024-10-14 15:00] VITALS: BP 121/65; PULSE 75; RESP 16
== END 2024-10-14 15:12 | disposition home or self-care (01) ==
LOC: ORPAIN 12:54
PROVIDERS: ATTEND Specialist
DX: M47.26 Other spondylosis with radiculopathy, lumbar region (principal)
CPT/HCPCS: 62323; Q9966; J1010

== ENCOUNTER → 2024-11-17 | Outpatient (CLI) | payer MEDICARE ==
--- NOTE | 2024-11-17 16:45 | P.PAINPG ---
PQRS Measure Charge Sheet Comment: HISTORY OF PRESENT ILLNESS: A 73 yr old female w daughter at side presents today w severe and chronic LBP > 1 yr secondary to radiculopathy, spondylosis and facet arthropathy without myelopathy for evaluation s/p LUI L4-L5 #1. Pt states she experienced 60 % pain relief x 4 wks s/p procedure. Pt states pain level is provoked at 6-7 /10 in intensity, intermittent, localized in the lower lumbar spine, predominantly axial, achy in character w occasional shooting pain towards the BL hips. Pain is provoked by walking/ standing for periods > 10 min. Pain is alleviated by PT x 2 wks in May 2024 (which provoked pain), physician guided stretches daily since Mar 2024, heat, medications, manual massage, use of a wheelchair for ambulatory assistance, repositioning and rest. Interventional procedures include BL TPIs C2-T2 x1, LUI L4-L5 x1 (Sep 2024) Medications include ASA REVIEW OF ORGAN SYSTEMS: CONSTITUTIONAL: No fevers or chills. No recent weight loss. NEUROLOGICAL: + numbness and tingling along the distal extremities. No seizure disorders or headaches. MUSCULOSKELETAL: + pain PSYCHIATRIC: Denies current depression or suicidal thoughts. Physical Examinations : Constitutional : Cooperative , not in acute distress . Neurologic : Cranial nerve II to XII intact. No focal neurological deficits. Psychiatric : alert & oriented x 3. Matching mood & appropriate affect. Judgment & insight intact. Musculoskeletal : Cervical Spine Motor strength in the deltoid and biceps: Normal right side. Normal Left side Motor strength biceps and the wrist extensors: Normal right side . Normal left side Motor strength in the triceps muscle: N ormal right side. Normal left side Deep tendon reflexes: Normal at the biceps. Normal at Brachioradialis. Normal at triceps Vertebral body tenderness to deep palpation over Cervical facet loading test: positive bilaterally Spurling test: positive bilaterally Neck distraction test: positive bilaterally Nabil sign: positive bilaterally Lumbar spine Motor strength lower extremities ,thigh and legs 5/5 Right side , 5/5 Left side Deep tendon reflexes : Normal Knee Jerk. Normal Ankle Jerk Vertebral body tenderness over L4 Gee Test positive BL L4-L5 Lumbar facet Loading Test: positive Right / positive Left L4-L5/ L5-S1 Range of motion of the lumbar spine Flexion 30 degrees, extension 10 degrees Straight Leg Raise test: Left/ Right positive at degree Toya test: positive right / positive left. Severe tenderness over the Sacroiliac joint on the Right / Left sides Gaenslen test: positive bilaterally Seated flexion test: positive bilaterally. Sacral spine : Severe tenderness over the Sacroiliac joint: right side / left side Range of motion: Flexion of the lumbar spine <60 degrees Range of motion: Extension of the lumbar spine <20 degrees Gaenslen's Test positive Toya test: positive right side / left side Thigh Thrust Test Sacral Thrust Test Imaging: X ray of the lumbar spine from 11/25/[address] non contrast of the thoracic/ lumbar spine from 04/15/24 reviewed Assessment/ Plan : Lumbar radiculopathy Recommendation of BL MBB L4-L5/ L5-S1 #1. Risks, benefits of procedure discussed and pt verbalized understanding. Protocol for discontinuation/ continuation of medications chasidy procedure discussed. Minimal anesthesia including Fentanyl and Versed if clinically indicated. All questions answered. I have spent greater than 30 minutes on patient care today. Dr Partida was available by phone for the evaluation of this patient. The time was used to review the medical records including relevant urine studies and Prescription history (MAPs), review of the available imaging, evaluation and examination of the patient, coordination of care with the medical staff and if applicable referring physicians, as well as creation of the medical record PQRS Narrative: Smoking Status Never smoker Narcotic Agreement Date Signed 07/29/24 Hx Alcohol Use (MH) No Home Medications: Ambulatory Orders Aspirin 81 mg PO DAILY 09/05/14 Mirtazapine [Remeron] 7 mg PO HS 09/05/14 Omeprazole [PriLOSEC] 20 mg PO AC-BRKFST 09/05/14 Simvastatin [Zocor] 20 mg PO HS 09/05/14 metFORMIN HCL [Glucophage] 500 mg PO QAM 09/05/14 Insulin Glargine/Lixisenatide [Soliqua 100 Unit-33 Mcg/ml Pen] 24 units SQ DAILY 04/07/24 Unk Azo Probiotic 1 tab PO DAILY 04/07/24 lisinopriL [Zestril] 2.5 mg PO HS 04/07/24 ondansetron HCL [Zofran] 8 mg PO DIRECTED PRN 04/07/24 Cranberry Fruit Concentrate [Azo Cranberry] 250 mg PO DAILY 04/16/24 D-Mannose 2 tab PO DAILY 04/16/24 Levothyroxine Sodium [Synthroid] 125 mcg PO DAILY 04/16/24 Loperamide [Imodium] 2 mg PO QID PRN 04/16/24 Multivitamins, Thera [Multivitamin (formulary)] 1 tab PO DAILY 04/16/24 Acetaminophen [Tylenol Extra Strength] 500 mg PO QAM 10/13/24 Calcium Carbonate [Calcium] 1,200 mg PO QAM 10/13/24 Cyclobenzaprine [Flexeril] 10 mg PO Q12H PRN 10/13/24 DULoxetine HCL [Cymbalta] 60 mg PO QAM 10/13/24 Docusate [Colace] 200 mg PO DAILY 10/13/24 Fluconazole [Diflucan] 150 mg PO DAILY PRN 10/13/24 Inulin/Chromium Picolinate [Fiber Gummies Chew] 2 tab PO BID 10/13/24 Ketoconazole 2% Cream [Nizoral 2%] 1 applic TOPICAL BID 10/13/24 Magnesium Oxide [Mag-Ox] 400 mg PO QAM 10/13/24 Miconazole Nitrate [Zeasorb AF] 1 applic TOPICAL QAM PRN 10/13/24 Sodium (Unknown Dose) 1 gm PO QAM 10/13/24 Tamsulosin HCl [Flomax] 0.4 mg PO QAM 10/13/24 Triamcinolone(Unknown Dose) 1 dose TOPICAL QAM PRN 10/13/24 traMADol HCL 50 mg PO Q8H PRN 10/13/24 Controlled Substance Measures - Controlled Substance Measures Is patient prescribed a controlled substance at discharge?: No
[2024-11-17 16:54] VITALS: BP 127/79; PULSE 110; RESP 16; TEMP 98.1
== END ==
LOC: PNWHC3 14:34
PROVIDERS: ATTEND Specialist
DX: M54.17 Radiculopathy, lumbosacral region (principal)
CPT/HCPCS: 99211

== ENCOUNTER → 2024-12-28 | Outpatient (CLI) | payer MEDICARE ==
[2024-12-28 15:45] LABS: African American GFR (CKD) >90 (>60 ml/min/1.73 sqM); Blood Urea Nitrogen 19 mg/dL (7-17); Non-African American GFR(CKD) >90 (>60 ml/min/1.73 sqM)
--- NOTE | 2024-12-29 08:55 | CT ---
EXAMINATION TYPE: CT abdomen pelvis w con CT DLP: 2307.1 mGycm, Automated exposure control for dose reduction was used. DATE OF EXAM: 12/28/2024 5:50 PM COMPARISON: Pelvic ultrasound 04/06/2020 CLINICAL INDICATION:Female, 74 years old with history of R10.84 GENERALIZED ABDOMINAL PAIN; Substerna l mass TECHNIQUE: Standard CT of the abdomen and pelvis following the administration of 100 cc of Isovue 3 00 IV contrast material and oral contrast. Coronal and sagittal reformats were performed. FINDINGS: LOWER CHEST: Visualized lung bases are clear. Coronary artery calcifications. Trace pericardial effus ion. Elevation of the right hemidiaphragm. The substernal mass correlates to a prominent xiphoid proc ess extending anteriorly. ABDOMEN LIVER: Unremarkable GALLBLADDER AND BILE DUCTS: Unremarkable. PANCREAS: Atrophy of the tail of the pancreas. No pancreatic ductal dilatation or parenchymal calcifi cations. No surrounding fluid collections or inflammation. SPLEEN: Unremarkable. ADRENAL GLANDS: Unremarkable. KIDNEYS AND URETERS: No evidence of hydronephrosis or renal calculus. The kidneys enhance symmetrical ly. Contrast is demonstrated within both collecting systems on the delayed phase. PELVIS BLADDER: Unremarkable REPRODUCTIVE: Unremarkable. ABDOMEN & PELVIS STOMACH AND BOWEL: Stomach and duodenum are unremarkable. Possible proximal jejunum diverticulum. Dis juliet colonic diverticulosis without evidence for acute diverticulitis. No focal bowel wall thickening or surrounding inflammatory changes. The appendix is within normal limits. Enteric contrast reaches t he ileocecal junction. No evidence of bowel obstruction. PERITONEUM: No evidence of pneumoperitoneum or free fluid. VASCULATURE: Mild atherosclerotic calcifications are present throughout the abdominal aorta and its b ranches. No evidence of aortic aneurysm. Pelvic phleboliths. MUSCULOSKELETAL: No acute osseous abnormalities. Few scattered sclerotic foci within the pelvic bones likely representing benign bone islands. Grade 1 anterolisthesis of L4 and L5 without evidence of pa rs defects. Multilevel degenerative disc disease most pronounced at L3-L5. LYMPH NODES: No evidence for lymphadenopathy. SOFT TISSUE/ABDOMINAL WALL: Unremarkable IMPRESSION: 1. No CT evidence for acute abdominal/pelvic process. 2. Colonic diverticulosis without evidence for acute diverticulitis. 3. 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 [facility], , 12/29/2024 8:52 AM
== END | disposition home or self-care (01) ==
LOC: RADCTMAIN 14:21
PROVIDERS: ATTEND Internal Medicine
DX: K57.30 Diverticulosis of large intestine without perforation or abscess without bleeding (principal); R22.1 Localized swelling, mass and lump, neck; R10.84 Generalized abdominal pain
CPT/HCPCS: 82565; 84520; 74177; 36415; Q9967

== ENCOUNTER 2025-01-06 09:26 | Day surgery (SDC) | payer MEDICARE ==
[2025-01-06] MEDS: IV FLUID CONTINUATION 1,000 ML IV ONE (09:47)
[2025-01-06 09:52] VITALS: RESP 16; TEMP 98
[2025-01-06 10:03] LABS: Glucose,Whole Blood 166 mg/dL (70-110)
[2025-01-06] MEDS: LACTATED RINGERS 1,000 ML IV SCH (10:12)
[2025-01-06] MEDS ORDERED: MIDAZOLAM 2 MG/2 ML VIAL ONE (10:20)
[2025-01-06] MEDS ORDERED: fentaNYL (PF) 50 MCG/ML 2 ML AMP ONE (10:20)
[2025-01-06] MEDS ORDERED: ROPIVACAINE 5MG/ML 20ML VIAL ONE (10:20)
[2025-01-06] MEDS: IV FLUID CONTINUATION 800 ML IV ONE (10:42)
--- NOTE | 2025-01-06 10:42 | P.PCN ---
Date of Procedure: 01/06/25 Procedure(s) Performed: PREOPERATIVE DIAGNOSIS : 1- Lumbar spondylosis with Facet Arthropathy without myelopathy . 2- Lumber degenerative disc disease POSTOPERATIVE DIAGNOSIS: 1- Lumbar spondylosis with Facet Arthropathy without myelopathy . 2- Lumber degenerative disc disease PROCEDURE: Diagnostic bilateral L3 , L4 , and L5 medial branch block under fluoroscopy guidance(fluoroscopy images available in the radiology Department ) ( To target the facet joint between Bilateral L4-5 , and L5- S1 )#1st ANESTHESIA:moderate sedation with intravenous Versed 2 mg and Fentanyl 100 mcg. (Sedation start time 10:20 , ended at 10:35 ) EBL: Minimal COMPLICATION: None PROCEDURE INDICATION: Chronic low back pain secondary to Facet arthropathy unresponsive to conservative treatment. PROCEDURE DESCRIPTION: the patient was seen and identified in the preop holding area , risks and benefits and possible complications of the procedure and alternative were discussed with the patient, and the patient agreed to proceed with the procedure and signed the consent and vital signs monitored during the procedure and fluoroscopy was used to maximize the benefit and accuracy of the needle placement, and sedation was given to decrease patient anxiety, patient was taken to the procedure room and placed in prone position vital signs monitored in the back prepped with chlorhexidine X3 then under strict sterile technique using a right oblique fluoroscopy ,the junction of the transverse process and the superior articulating process of the right L3 , L4 , and L5 vertebra which corresponding to the fluoroscopy image of the eye of the Bob dog on the block side for the medial branches and subsequently , after local infiltration of skin and subcu tissuies with Ropivacaine 0.5 % , one mL at each level ,then 22-gauge Quincke-type needles , 3 needle was used , each one of them placed at the junction of the base of the transverse process and the superior articular process at the appropriate level, and the needle was advanced until the periosteum contacted, needle placement confirmed with AP oblique and lateral view and after appropriate needle placement confirmed, and after negative aspiration for heme and CSF and there was no paresthesia 1-1/2 mL of Ropivacaine 0.5% used , then half mL injected at each level after negative aspiration the needle subsequently removed and the same procedure repeated for the left side at left side at L3 , L4 and L5 levels. At the end of the procedure and the needles removed and a bandage applied after the skin was cleaned the cleaning solution patient taken to recovery room in stable condition and monitors in the recovery room for 20-30 minutes and discharged home in stable condition after discharge criteria met and patient will follow up with the pain clinic in 2-4 weeks. note= next time I recommend to use 5 inches needle
--- NOTE | 2025-01-06 11:00 | FL ---
EXAMINATION TYPE: FL guided pain mgmt statistic DATE OF EXAM: 01/06/2025 10:41 AM COMPARISON: Pre Operative Images if available both CT/MRI or plain film CLINICAL INDICATION: Female, 74 years old with history of FACET BLOCK; TECHNIQUE: FL guided pain mgmt statistic, multiple fluoroscopic images provided for procedure. DAP: 0.84084 mGym2 Gycm2 uGym2 cGycm2 or equivalent. FINDINGS: Fluoroscopic images during injection for pain management demonstrate multilevel degeneration changes throughout the spine. No evidence for fracture. No acute process identified. IMPRESSION: 1. No evidence for intraoperative complication. 2. Please see the operative/procedural note for further details. [facility], , 01/06/2025 10:58 AM
[2025-01-06 11:08] VITALS: BP 111/50; PULSE 71
== END 2025-01-06 11:29 | disposition home or self-care (01) ==
LOC: ORPAIN 09:26
PROVIDERS: ATTEND Specialist
DX: M47.816 Spondylosis without myelopathy or radiculopathy, lumbar region (principal); M51.369 Other intervertebral disc degeneration, lumbar region without mention of lumbar back pain or lower extremity pain
CPT/HCPCS: 64493; 64494; J2250; J3010; J2795; 99152

== ENCOUNTER → 2025-01-20 | Outpatient (CLI) | payer MEDICARE ==
--- NOTE | 2025-01-20 15:18 | P.PAINPG ---
PQRS Measure Charge Sheet Comment: HISTORY OF PRESENT ILLNESS: A 73 yr old female w daughter at side presents today w severe and chronic LBP > 1 yr secondary to radiculopathy, spondylosis and facet arthropathy without myelopathy for evaluation s/p BL MBB L4-L5/ L5-S1 #1. Pt states she experienced 80 % pain relief x 1 day s/p procedure. Pt states pain level is provoked at 8 /10 in intensity, intermittent, localized in the lower lumbar spine, predominantly axial, achy in character without shooting pain. Pain is provoked by walking/ standing for periods > 10 min. Pain is alleviated by PT x 2 wks in May 2024 (which provoked pain), physician guided stretches daily since Mar 2024, heat, medications, manual massage, use of a wheelchair for ambulatory assistance, repositioning and rest. Interventional procedures include BL TPIs C2-T2 x1, LUI L4-L5 x1 (Sep 2024), BL MBB L3-L5 x1 Medications include ASA REVIEW OF ORGAN SYSTEMS: CONSTITUTIONAL: No fevers or chills. No recent weight loss. NEUROLOGICAL: + numbness and tingling along the distal extremities. No seizure disorders or headaches. MUSCULOSKELETAL: + pain PSYCHIATRIC: Denies current depression or suicidal thoughts. Physical Examinations : Constitutional : Cooperative , not in acute distress . Neurologic : Cranial nerve II to XII intact. No focal neurological deficits. Psychiatric : alert & oriented x 3. Matching mood & appropriate affect. Judgment & insight intact. Musculoskeletal : Cervical Spine Motor strength in the deltoid and biceps: Normal right side. Normal Left side Motor strength biceps and the wrist extensors: Normal right side . Normal left side Motor strength in the triceps muscle: N ormal right side. Normal left side Deep tendon reflexes: Normal at the biceps. Normal at Brachioradialis. Normal at triceps Vertebral body tenderness to deep palpation over Cervical facet loading test: positive bilaterally Spurling test: positive bilaterally Neck distraction test: positive bilaterally Anbil sign: positive bilaterally Lumbar spine Motor strength lower extremities ,thigh and legs 5/5 Right side , 5/5 Left side Deep tendon reflexes : Normal Knee Jerk. Normal Ankle Jerk Vertebral body tenderness over L4 Gee Test positive BL L4-L5 Lumbar facet Loading Test: positive Right / positive Left L4-L5/ L5-S1 Range of motion of the lumbar spine Flexion 30 degrees, extension 10 degrees Straight Leg Raise test: Left/ Right positive at degree Toya test: positive right / positive left. Severe tenderness over the Sacroiliac joint on the Right / Left sides Gaenslen test: positive bilaterally Seated flexion test: positive bilaterally. Sacral spine : Severe tenderness over the Sacroiliac joint: right side / left side Range of motion: Flexion of the lumbar spine <60 degrees Range of motion: Extension of the lumbar spine <20 degrees Gaenslen's Test positive Toya test: positive right side / left side Thigh Thrust Test Sacral Thrust Test Imaging: X ray of the lumbar spine from 11/25/[address] non contrast of the thoracic/ lumbar spine from 04/15/24 reviewed Assessment/ Plan : Lumbar radiculopathy Recommendation of BL MBB L4-L5/ L5-S1 #2. Risks, benefits of procedure discussed and pt verbalized understanding. Protocol for discontinuation/ continuation of medications chasidy procedure discussed. Minimal anesthesia including Fentanyl and Versed if clinically indicated. All questions answered. I have spent greater than 30 minutes on patient care today. Dr Partida was available by phone for the evaluation of this patient. The time was used to review the medical records including relevant urine studies and Prescription history (MAPs), review of the available imaging, evaluation and examination of the patient, coordination of care with the medical staff and if applicable referring physicians, as well as creation of the medical record PQRS Narrative: Smoking Status Never smoker Narcotic Agreement Date Signed 07/29/24 Hx Alcohol Use (MH) No Home Medications: Ambulatory Orders Aspirin 81 mg PO DAILY 09/05/14 Mirtazapine [Remeron] 7 mg PO HS 09/05/14 Omeprazole [PriLOSEC] 20 mg PO AC-BRKFST 09/05/14 Simvastatin [Zocor] 20 mg PO HS 09/05/14 metFORMIN HCL [Glucophage] 500 mg PO QAM 09/05/14 Insulin Glargine/Lixisenatide [Soliqua 100 Unit-33 Mcg/ml Pen] 26 units SQ DAILY 04/07/24 Unk Azo Probiotic 1 tab PO DAILY 04/07/24 lisinopriL [Zestril] 2.5 mg PO HS 04/07/24 ondansetron HCL [Zofran] 8 mg PO DIRECTED PRN 04/07/24 Cranberry Fruit Concentrate [Azo Cranberry] 250 mg PO DAILY 04/16/24 D-Mannose 2 tab PO DAILY 04/16/24 Levothyroxine Sodium [Synthroid] 125 mcg PO DAILY 04/16/24 Multivitamins, Thera [Multivitamin (formulary)] 1 tab PO DAILY 04/16/24 Acetaminophen [Tylenol Extra Strength] 500 mg PO QAM 10/13/24 Calcium Carbonate [Calcium] 1,200 mg PO QAM 10/13/24 Cyclobenzaprine [Flexeril] 10 mg PO Q12H PRN 10/13/24 DULoxetine HCL [Cymbalta] 60 mg PO QAM 10/13/24 Docusate [Colace] 200 mg PO DAILY 10/13/24 Fluconazole [Diflucan] 150 mg PO DAILY PRN 10/13/24 Inulin/Chromium Picolinate [Fiber Gummies Chew] 2 tab PO BID 10/13/24 Magnesium Oxide [Mag-Ox] 400 mg PO QAM 10/13/24 Sodium (Unknown Dose) 1 gm PO QAM 10/13/24 Tamsulosin HCl [Flomax] 0.4 mg PO QAM 10/13/24 Triamcinolone(Unknown Dose) 1 dose TOPICAL QAM PRN 10/13/24 traMADol HCL 50 mg PO Q8H PRN 10/13/24 Controlled Substance Measures - Controlled Substance Measures Is patient prescribed a controlled substance at discharge?: No
== END ==
LOC: PNWHC3 14:25
PROVIDERS: ATTEND Specialist
DX: M47.26 Other spondylosis with radiculopathy, lumbar region (principal)
CPT/HCPCS: 99212

== ENCOUNTER → 2025-02-04 | Day surgery (SDC) | payer MEDICARE ==
[2025-02-03 11:02] VITALS: BMI 36.9
[~2025-02-04] MED LIST changes: -LACTATED RINGERS 1,000 ML IV SCH; +MIDAZOLAM 2 MG/2 ML VIAL ONE; +ROPIVACAINE 5MG/ML 20ML VIAL ONE; +fentaNYL (PF) 50 MCG/ML 2 ML AMP ONE
[2025-02-04 12:08] VITALS: TEMP 97.3
[2025-02-04] MEDS: IV FLUID CONTINUATION 1,000 ML IV ONE ×2 (12:15→12:46)
[2025-02-04] MEDS: LACTATED RINGERS 1,000 ML IV SCH (12:15)
[2025-02-04] MEDS: LIDOCAINE 1% (10MG/ML) FOR IV START INTRADERMA STA (12:15)
[2025-02-04 12:22] LABS: Glucose,Whole Blood 172 mg/dL (70-110)
--- NOTE | 2025-02-04 12:42 | P.PCN ---
Date of Procedure: 02/04/25 Procedure(s) Performed: PREOPERATIVE DIAGNOSIS : 1- Lumbar spondylosis with Facet Arthropathy without myelopathy . 2- Lumber degenerative disc disease POSTOPERATIVE DIAGNOSIS: 1- Lumbar spondylosis with Facet Arthropathy without myelopathy . 2- Lumber degenerative disc disease PROCEDURE: Diagnostic bilateral L3 , L4 , and L5 medial branch block under fluoroscopy guidance(fluoroscopy images available in the radiology Department ) ( To target the facet joint between Bilateral L4-5 , and L5- S1 )#2nd ANESTHESIA:moderate sedation with intravenous Versed 1 mg and Fentanyl 50 mcg. (Sedation start time 12:28 , ended at 12:46 ) EBL: Minimal COMPLICATION: None PROCEDURE INDICATION: Chronic low back pain secondary to Facet arthropathy unresponsive to conservative treatment. PROCEDURE DESCRIPTION: the patient was seen and identified in the preop holding area , risks and benefits and possible complications of the procedure and alternative were discussed with the patient, and the patient agreed to proceed with the procedure and signed the consent and vital signs monitored during the procedure and fluoroscopy was used to maximize the benefit and accuracy of the needle placement, and sedation was given to decrease patient anxiety, patient was taken to the procedure room and placed in prone position vital signs monitored in the back prepped with chlorhexidine X3 then under strict sterile technique using a right oblique fluoroscopy ,the junction of the transverse process and the superior articulating process of the right L3 , L4 , and L5 vertebra which corresponding to the fluoroscopy image of the eye of the Bob dog on the block side for the medial branches and subsequently , after local infiltration of skin and subcu tissuies with Ropivacaine 0.5 % , one mL at each level ,then 22-gauge 5 inches long Quincke-type needles , 3 needle was used , each one of them placed at the junction of the base of the transverse process and the superior articular process at the appropriate level, and the ne edle was advanced until the periosteum contacted, needle placement confirmed with AP oblique and lateral view and after appropriate needle placement confirmed, and after negative aspiration for heme and CSF and there was no paresthesia 1-1/2 mL of Ropivacaine 0.5% used , then half mL injected at each level after negative aspiration the needle subsequently removed and the same procedure repeated for the left side at left side at L3 , L4 and L5 levels. At the end of the procedure and the needles removed and a bandage applied after the skin was cleaned the cleaning solution patient taken to recovery room in stable condition and monitors in the recovery room for 20-30 minutes and discharged home in stable condition after discharge criteria met and patient will follow up with the pain clinic in 2-4 weeks.
[2025-02-04 13:06] VITALS: BP 117/73; PULSE 69; RESP 14
--- NOTE | 2025-02-04 13:20 | FL ---
EXAMINATION TYPE: FL guided pain mgmt statistic DATE OF EXAM: 02/04/2025 12:46 PM COMPARISON: Pre Operative Images if available both CT/MRI or plain film CLINICAL INDICATION: Female, 74 years old with history of Delvin Lumbar Facet; TECHNIQUE: FL guided pain mgmt statistic, multiple fluoroscopic images provided for procedure. DAP: 0.64087 mGym2 Gycm2 uGym2 cGycm2 or equivalent. FINDINGS: Fluoroscopic images during injection for pain management demonstrate multilevel degeneration changes throughout the spine. No evidence for fracture. No acute process identified. IMPRESSION: 1. No evidence for intraoperative complication. 2. Please see the operative/procedural note for further details. [facility], , 02/04/2025 1:18 PM
== END ==
LOC: ORPAIN 11:32
PROVIDERS: ATTEND Specialist
DX: M47.816 Spondylosis without myelopathy or radiculopathy, lumbar region (principal); M51.369 Other intervertebral disc degeneration, lumbar region without mention of lumbar back pain or lower extremity pain
CPT/HCPCS: 64493; 64494; J2250; J3010; J2795; 99152

== ENCOUNTER → 2025-02-24 | Outpatient (CLI) | payer MEDICARE ==
[2025-02-24 14:12] VITALS: BP 131/79; PULSE 77; RESP 16; TEMP 98.5
--- NOTE | 2025-02-24 15:26 | P.PAINPG ---
Objective - Vital Signs Vital signs: Intake & Output 02/23/25 02/24/25 02/24/25 18:59 06:59 18:59 Weight 113.398 kg PQRS Measure Charge Sheet Comment: HISTORY OF PRESENT ILLNESS: A 74 yr old female w daughter at side presents today w severe and chronic LBP > 1 yr secondary to radiculopathy, spondylosis and facet arthropathy without myelopathy for evaluation s/p BL MBB L4-L5/ L5-S1 #2. Pt states she experienced 100 % pain relief x 2 days s/p procedure. Pt states pain level is provoked at 8 /10 in intensity, intermittent, localized in the lower lumbar spine, predominantly axial, achy in character without shooting pain. Pain is provoked by walking/ standing for periods > 10 min. Pain is alleviated by PT x 2 wks in May 2024 (which provoked pain), physician guided stretches daily since Mar 2024, heat, medications, manual massage, use of a wheelchair for ambulatory assistance, repositioning and rest. Interventional procedures include BL TPIs C2-T2 x1, LUI L4-L5 x1 (Sep 2024), BL MBB L3-L5 x2 Medications include ASA REVIEW OF ORGAN SYSTEMS: CONSTITUTIONAL: No fevers or chills. No recent weight loss. NEUROLOGICAL: + numbness and tingling along the distal extremities. No seizure disorders or headaches. MUSCULOSKELETAL: + pain PSYCHIATRIC: Denies current depression or suicidal thoughts. Physical Examinations : Constitutional : Cooperative , not in acute distress . Neurologic : Cranial nerve II to XII intact. No focal neurological deficits. Psychiatric : alert & oriented x 3. Matching mood & appropriate affect. Judgment & insight intact. Musculoskeletal : Cervical Spine Motor strength in the deltoid and biceps: Normal right side. Normal Left side Motor strength biceps and the wrist extensors: Normal right side . Normal left side Motor strength in the triceps muscle: N ormal right side. Normal left side Deep tendon reflexes: Normal at the biceps. Normal at Brachioradialis. Normal at triceps Vertebral body tenderness to deep palpation over Cervical facet loading test: positive bilaterally Spurling test: positive bilaterally Neck distraction test: positive bilaterally Nabil sign: positive bilaterally Lumbar spine Motor strength lower extremities ,thigh and legs 5/5 Right side , 5/5 Left side Deep tendon reflexes : Normal Knee Jerk. Normal Ankle Jerk Vertebral body tenderness over L4 Gee Test positive BL L4-L5 Lumbar facet Loading Test: positive Right / positive Left L4-L5/ L5-S1 Range of motion of the lumbar spine Flexion 30 degrees, extension 10 degrees Straight Leg Raise test: Left/ Right positive at degree Toya test: positive right / positive left. Severe tenderness over the Sacroiliac joint on the Right / Left sides Gaenslen test: positive bilaterally Seated flexion test: positive bilaterally. Sacral spine : Severe tenderness over the Sacroiliac joint: right side / left side Range of motion: Flexion of the lumbar spine <60 degrees Range of motion: Extension of the lumbar spine <20 degrees Gaenslen's Test positive Toya test: positive right side / left side Thigh Thrust Test Sacral Thrust Test Imaging: X ray of the lumbar spine from 11/25/[address] non contrast of the thoracic/ lumbar spine from 04/15/24 reviewed Assessment/ Plan : Lumbar radiculopathy Recommendation of BL RFA L4-L5/ L5-S1. Risks, benefits of procedure discussed and pt verbalized understanding. Protocol for discontinuation/ continuation of medications chasidy procedure discussed. Minimal anesthesia including Fentanyl and Versed if clinically indicated. All questions answered. I have spent greater than 30 minutes on patient care today. Dr Partida was available by phone for the evaluation of this patient. The time was used to review the medical records including relevant urine studies and Prescription history (MAPs), review of the available imaging, evaluation and examination of the patient, coordination of care with the medical staff and if applicable referring physicians, as well as creation of the medical record - Pain Location Bilateral Lower Back Non-Pharmacological Interventions: Heat, Inactivity, Physical Therapy, Position/Reposition, Sitting, Standing Pharmacological Interventions: Block, Epidural, PRN Medication, Scheduled Medication, Topical Medication PQRS Narrative: Smoking Status Never smoker Narcotic Agreement Date Signed 07/29/24 Hx Alcohol Use (MH) No Home Medications: Ambulatory Orders Aspirin 81 mg PO DAILY 09/05/14 Mirtazapine [Remeron] 15 mg PO HS 09/05/14 Omeprazole [PriLOSEC] 20 mg PO AC-BRKFST 09/05/14 Simvastatin [Zocor] 20 mg PO HS 09/05/14 metFORMIN HCL [Glucophage] 500 mg PO QAM 09/05/14 Insulin Glargine/Lixisenatide [Soliqua 100 Unit-33 Mcg/ml Pen] 26 units SQ QAM 04/07/24 Unk Azo Probiotic 1 tab PO DAILY 04/07/24 lisinopriL [Zestril] 2.5 mg PO HS 04/07/24 ondansetron HCL [Zofran] 8 mg PO DIRECTED PRN 04/07/24 Cranberry Fruit Concentrate [Azo Cranberry] 250 mg PO DAILY 04/16/24 D-Mannose 2 tab PO DAILY 04/16/24 Levothyroxine Sodium [Synthroid] 125 mcg PO DAILY 04/16/24 Multivitamins, Thera [Multivitamin (formulary)] 1 tab PO DAILY 04/16/24 Acetaminophen [Tylenol Extra Strength] 500 mg PO QAM 10/13/24 Calcium Carbonate [Calcium] 1,200 mg PO QAM 10/13/24 Cyclobenzaprine [Flexeril] 10 mg PO Q12H PRN 10/13/24 DULoxetine HCL [Cymbalta] 60 mg PO QAM 10/13/24 Docusate [Colace] 200 mg PO DAILY 10/13/24 Fluconazole [Diflucan] 150 mg PO DAILY PRN 10/13/24 Inulin/Chromium Picolinate [Fiber Gummies Chew] 2 tab PO BID 10/13/24 Magnesium Oxide [Mag-Ox] 400 mg PO QAM 10/13/24 Sodium (Unknown Dose) 1 gm PO QAM 10/13/24 Tamsulosin HCl [Flomax] 0.4 mg PO QAM 10/13/24 Triamcinolone(Unknown Dose) 1 dose TOPICAL QAM PRN 10/13/24 traMADol HCL 50 mg PO Q8H PRN 10/13/24 Controlled Substance Measures - Controlled Substance Measures Is patient prescribed a controlled substance at discharge?: No
== END | disposition home or self-care (01) ==
LOC: PNWHC3 13:55
PROVIDERS: ATTEND Specialist
DX: M47.26 Other spondylosis with radiculopathy, lumbar region (principal); G89.29 Other chronic pain; M54.50 Low back pain, unspecified
CPT/HCPCS: 99211

== ENCOUNTER 2025-03-18 09:17 | Day surgery (SDC) | payer MEDICARE ==
[2025-03-16 15:52] VITALS: BMI 36.9
[2025-03-18] MEDS: LACTATED RINGERS 1,000 ML IV SCH (09:57)
[2025-03-18] MEDS: IV FLUID CONTINUATION 1,000 ML IV ONE ×2 (09:57→11:28)
[2025-03-18] MEDS: LIDOCAINE 1% (10MG/ML) FOR IV START INTRADERMA STA (09:59)
[2025-03-18 10:06] VITALS: RESP 16; TEMP 97.2
[2025-03-18 10:11] LABS: Glucose,Whole Blood 148 mg/dL (70-110)
[2025-03-18] MEDS ORDERED: ROPIVACAINE 5 MG/ML 30 ML VIAL ONE (10:57)
[2025-03-18] MEDS ORDERED: methylPREDNISolone ACETATE 40 MG/ML 1 ML VIAL ONE (10:57)
[2025-03-18] MEDS ORDERED: fentaNYL (PF) 50 MCG/ML 2 ML AMP ONE (10:57)
[2025-03-18] MEDS ORDERED: MIDAZOLAM 2 MG/2 ML VIAL ONE (10:57)
--- NOTE | 2025-03-18 11:23 | P.PCN ---
Date of Procedure: 03/18/25 Procedure(s) Performed: PREOPERATIVE DIAGNOSIS: 1-Lumbar Spondylosis with Facet Arthropathy without myelopathy. 2- Lumber degenerative disc disease. POSTOPERATIVE DIAGNOSIS: 1- Lumbar Spondylosis with Facet Arthropathy without myelopathy. 2- Lumber degenerative disc disease. PROCEDURES : Bilateral Radiofrequency thermocoagulation, L3 , L4, L5 medial branch, with fluoroscopic guidance (fluoroscopy images in the rad dept) ( to denervate the facet joint at bilateral L4-5 , L5-S1 levels ). ANESTHESa: Moderate sedation with intravenous versed 2 mg and fentaneyl 50 mcg, (sedation started 10:57, ended 11:19). EBL: Minimal PROCEDURE INDICATION: The patient with low back pain secondary to lumbar facet arthropathy who had more than 50% relief of her pain with previous diagnostic lumbar medial branch block with bupivacaine. PROCEDURE DESCRIPTION / TECHNIQUE: The patient was seen and identified in the preoperative area. Risks, benefits, complications, including but not limited to risk of infection ,bleeding , allergic reactions to the medications and no complete pain releife , and alternatives were discussed with the patient, the patient agreed to proceed with the procedure and signed the consent. IV was started. Vital signs remained stable throughout the procedure. Patient was taken to the OR and time out was completed. The patient was placed in the prone position on the procedure table. The lumber area was prepped and draped in the usual sterile fashion. . Vital signs were closely monitored during the procedure .IV sedation was used during the procedure to decrease patients anxiety. Using AP and then oblique fluoroscopy, the ``eye of the Bob dog corresponding to the connection between the superior and transverse articular processes of right L3, L4, and L5 were identified, marked, and localized with 1% lidocaine. Subsequently, a 18 guage (VENOM )150-mm radiofrequency cannula with a 10-mm active tip was advanced guided by fluoroscopy to each of the``eyes of the Bob dog at right L3, L4, and L5. Each site then underwent sensory testing at 50 Hz and 0 to 1 volt and motor testing at 2.5 Hz and 0 to 3 volt with local stimulation, but no radicular symptoms down the legs. Thereafter each sites underwent radiofrequency thermocoagulation at 80 degrees celsius for 90 seconds after injecting 0.5 ml of PF Ropivacaine 1ml, then after the thermocoagulation done , 1 ml of the block solution containing Depo-Medrol 20 mg and 3 ml of Ropivacaine 0.5% was injected at the right L3 , L4 , and L5 , levels after negative aspiration of CSF and blood and with no paresthesias. Cannulas were retracted while injecting lidocaine 1% until the needle is out. The same procedure was repeated at the level of Left L3, L4, and L5 levels. At the end of the procedure, the skin was cleansed and bandages were applied. COMPLICATIONS: No acute complications. DISPOSITION / PLANS: The patient was placed in a supine position and transferred to the recovery area in a stable condition for observation and was discharged from the recovery room after meeting discharge criteria. Home discharge instructions given to the patient by the staff. The patient was reexamined prior to discharge. The patient will schedule a follow up in the clinic in 2-4 weeks.
[2025-03-18 11:37] VITALS: BP 115/58; PULSE 57
--- NOTE | 2025-03-18 11:39 | FL ---
EXAMINATION TYPE: FL guided pain mgmt statistic DATE OF EXAM: 03/18/2025 CLINICAL INDICATION: Female, 74 years old with history of PAIN; [facility], TECHNIQUE: Fluoroscopy. COMPARISON: None. FINDINGS: Fluoroscopic guidance was provided during pain relief procedure performed by Dr. Partida . A total of 31.2 seconds of fluoroscopic time was utilized during the procedure and 6 spot images a re acquired. Images acquired shows needle localization at several levels in the lumbar spine. Mild m ultilevel degenerative changes are present. Total DAP: 0.29183 mGym2. IMPRESSION: As Above. [facility], , 03/18/2025 11:36 AM
== END 2025-03-18 12:00 | disposition home or self-care (01) ==
LOC: ORPAIN 09:17
PROVIDERS: ATTEND Specialist
DX: M47.816 Spondylosis without myelopathy or radiculopathy, lumbar region (principal); M51.369 Other intervertebral disc degeneration, lumbar region without mention of lumbar back pain or lower extremity pain
CPT/HCPCS: 64635; 64636; J2250; J3010; J2795; J1010; 99152

== ENCOUNTER → 2025-04-13 | Outpatient (CLI) | payer MEDICARE ==
[2025-04-13 13:27] VITALS: BP 132/83; PULSE 80; RESP 19
--- NOTE | 2025-04-13 15:40 | P.PAINPG ---
Objective - Vital Signs Vital signs: Vital Signs Temp Pulse 80 04/13/25 13:22 Resp 19 04/13/25 13:22 BP 132/83 04/13/25 13:22 Pulse Ox 97 04/13/25 13:22 FiO2 Intake & Output 04/12/25 04/13/25 04/13/25 18:59 06:59 18:59 Weight 112.037 kg PQRS Measure Charge Sheet Mode of Arrival: Wheelchair Comment: HISTORY OF PRESENT ILLNESS: A 74 yr old wheelchair bound female presents today w severe and chronic LBP > 1 yr secondary to radiculopathy, spondylosis and facet arthropathy without myelopathy for evaluation s/p BL RFA L4-L5/ L5-S1. Pt states she experienced 90 % pain relief x 2 days s/p procedure. Pt states pain level is provoked at 2 /10 in intensity, intermittent, localized in the lower lumbar spine, predominantly axial, achy in character without shooting pain. Pain is provoked by walking/ standing for periods > 10 min. Pain is alleviated by PT x 2 wks in May 2024 (which provoked pain), physician guided stretches daily since Mar 2024, heat, medications, manual massage, use of a wheelchair for ambulatory assistance, repositioning and rest. Interventional procedures include BL TPIs C2-T2 x1, LUI L4-L5 x1 (Sep 2024), BL RFA L3-L5 (03/20) Medications include ASA REVIEW OF ORGAN SYSTEMS: CONSTITUTIONAL: No fevers or chills. No recent weight loss. NEUROLOGICAL: + numbness and tingling along the distal extremities. No seizure disorders or headaches. MUSCULOSKELETAL: + pain PSYCHIATRIC: Denies current depression or suicidal thoughts. Physical Examinations : Constitutional : Cooperative , not in acute distress . Neurologic : Cranial nerve II to XII intact. No focal neurological deficits. Psychiatric : alert & oriented x 3. Matching mood & appropriate affect. Judgment & insight intact. Musculoskeletal : Cervical Spine Motor strength in the deltoid and biceps: Normal right side. Normal Left side Motor strength biceps and the wrist extensors: Normal right side . Normal left side Motor strength in the triceps muscle: Normal right side. Normal left side Deep tendon reflexes: Normal at the biceps. Normal at Brachioradialis. Normal at triceps Vertebral body tenderness to deep palpation over Cervical facet loading test: positive bilaterally Spurling test: positive bilaterally Neck distraction test: positive bilaterally Nabil sign: positive bilaterally Lumbar spine Motor strength lower extremities ,thigh and legs 5/5 Right side , 5/5 Left side Deep tendon reflexes : Normal Knee Jerk. Normal Ankle Jerk Vertebral body tenderness over L4 Gee Test positive BL L4-L5 Lumbar facet Loading Test: positive Right / positive Left L4-L5/ L5-S1 Range of motion of the lumbar spine Flexion 30 degrees, extension 10 degrees Straight Leg Raise test: Left/ Right positive at degree Toya test: positive right / positive left. Severe tenderness over the Sacroiliac joint on the Right / Left sides Gaenslen test: positive bilaterally Seated flexion test: positive bilaterally. Sacral spine : Severe tenderness over the Sacroiliac joint: right side / left side Range of motion: Flexion of the lumbar spine <60 degrees Range of motion: Extension of the lumbar spine <20 degrees Gaenslen's Test positive Toya test: positive right side / left side Thigh Thrust Test Sacral Thrust Test Imaging: X ray of the lumbar spine from 11/25/[address] non contrast of the thoracic/ lumbar spine from 04/15/24 reviewed Assessment/ Plan : Lumbar radiculopathy Will manage residual pain and may RTC on an as needed basis. All questions answered. I have spent greater than 30 minutes on patient care today. Dr Partida was available by phone for the evaluation of this patient. The time was used to review the medical records including relevant urine studies and Prescription history (MAPs), review of the available imaging, evaluation and examination of the patient, coordination of care with the medical staff and if applicable referring physicians, as well as creation of the medical record - Pain Location Lower Back Pharmacological Interventions: Medication PQRS Narrative: Smoking Status Never smoker Narcotic Agreement Date Signed 07/29/24 Blood Pressure 132/83 Pain Intensity [Lower Back] 2 Scale Used Numeric (1 - 10) Hx Alcohol Use (MH) No Home Medications: Ambulatory Orders Aspirin 81 mg PO DAILY 09/05/14 Mirtazapine [Remeron] 15 mg PO HS 09/05/14 Omeprazole [PriLOSEC] 20 mg PO AC-BRKFST 09/05/14 Simvastatin [Zocor] 20 mg PO HS 09/05/14 metFORMIN HCL [Glucophage] 500 mg PO QAM 09/05/14 Insulin Glargine/Lixisenatide [Soliqua 100 Unit-33 Mcg/ml Pen] 26 units SQ QAM 04/07/24 Unk Azo Probiotic 1 tab PO DAILY 04/07/24 lisinopriL [Zestril] 2.5 mg PO HS 04/07/24 ondansetron HCL [Zofran] 8 mg PO DIRECTED PRN 04/07/24 Cranberry Fruit Concentrate [Azo Cranberry] 250 mg PO DAILY 04/16/24 D-Mannose 2 tab PO DAILY 04/16/24 Levothyroxine Sodium [Synthroid] 125 mcg PO DAILY 04/16/24 Multivitamins, Thera [Multivitamin (formulary)] 1 tab PO DAILY 04/16/24 Acetaminophen [Tylenol Extra Strength] 500 mg PO QAM 10/13/24 Calcium Carbonate [Calcium] 1,200 mg PO QAM 10/13/24 Cyclobenzaprine [Flexeril] 10 mg PO Q12H PRN 10/13/24 DULoxetine HCL [Cymbalta] 60 mg PO QAM 10/13/24 Docusate [Colace] 200 mg PO DAILY 10/13/24 Fluconazole [Diflucan] 150 mg PO DAILY PRN 10/13/24 Inulin/Chromium Picolinate [Fiber Gummies Chew] 2 tab PO BID 10/13/24 Magnesium Oxide [Mag-Ox] 400 mg PO QAM 10/13/24 Sodium (Unknown Dose) 1 gm PO QAM 10/13/24 Tamsulosin HCl [Flomax] 0.4 mg PO QAM 10/13/24 Triamcinolone(Unknown Dose) 1 dose TOPICAL QAM PRN 10/13/24 traMADol HCL 50 mg PO Q8H PRN 10/13/24 Controlled Substance Measures - Controlled Substance Measures Is patient prescribed a controlled substance at discharge?: No
== END ==
LOC: PNWHC3 13:01
PROVIDERS: ATTEND Specialist
DX: M47.26 Other spondylosis with radiculopathy, lumbar region (principal)
CPT/HCPCS: 99212